=== PATIENT | male | born 1955 | race Caucasian/White ===

== ENCOUNTER 2025-10-02 11:12 | Observation (INO) ==
--- NOTE | 2025-10-02 11:15 | Emergency Department Note ---
Impression & Plan Near syncope, Parkinson disease, Hypotension, Frequent falls ED Provider Note NAME: AMISHA CALLAWAY AGE: 70 SEX: M : 1955 ARRIVES VIA: Ambulance INFORMANT: Patient, ED PROVIDER(S): Gumaro Lynn MD CHIEF COMPLAINT: Near syncope MEDICAL DECISION MAKING: Patient presents due to concern for syncope versus near syncope. IV was established and blood work was obtained patient was ordered IV fluids and a chest x-ray urinalysis. Patient does have some chronic neck pain but is paracervical no reported falls or trauma per EMS. Family reported to EMS that the patient was lowered to a seated position after standing. Patient never did hit his head or neck. Patient's blood work shows a normal white count hemoglobin 11.6 platelet count is unremarkable. Kidney function unremarkable. Mild hypomagnesemia at 1.5 blood sugar 164 but nonfasting not DKA. Low TSH but free T4 is normal. Patient did have a chest x-ray completed which was unremarkable. I did inform the patient and the patient's family bedside of the findings. Given that the patient has had persistent issues do not think unreasonable to stay in hospital for further workup. I did speak with the on-call hospital service Dr. Maya and the patient was admitted to the medicine service. Discussion w/ other healthcare providers: Dr. Maya inpatient medicine service Prior /Outside records reviewed: I reviewed part of a consultation from Dr. Miramontes from September 19. The patient was seen for near syncope Parkinson's history of cognitive impairment and history of TIA stroke. Patient reportedly had multiple episodes of near syncope in his back of his neck and head pain becomes pale reduced consciousness but never fully loses consciousness. Thought potentially secondary to autonomic instability orthostatic hypotension in the setting of Parkinson's disease. I reviewed part of a neurology visit from July 2024. Known history of Parkinson's. History of TIA under care at [facility] [place] compliant with medications and history of moderate cognitive impairment. Plan at this time is to increase his Sinemet to 1-1/2 tablets 4 times daily. Differential diagnosis: Benign positional vertigo, dehydration, hypovolemia, anemia, infection, hypoglycemia, electrolyte abnormalities, arrhythmia, tox among others were considered. Diagnostics, as interpreted by me: ECG: Normal sinus rhythm, rate of 82, normal intervals, normal axis no ST elevations. Cardiac monitoring: An order was placed for continuous cardiac monitoring. The monitor shows a rate of 85 with sinus rhythm. Patient was placed on pulse oximetry Medical decision rules: None Imaging studies: I informally interpreted the patient's chest x-ray does not show obvious pneumonia with formal report to follow. HPI: Patient presents due to concern for low blood pressure. The patient reportedly has had issues with low blood pressure over the last several weeks. Patient with reported history of dementia and Parkinson's coming from home with a history of frequent falls. Patient reportedly was lightheaded dizzy had complained of some posterior neck pain EMS was called due to concerns for "zoning out.". They noticed that his blood pressure was low into the 70s systolic. The patient states that he ate and drank this morning. Patient is unclear as to whether or not he fell but EMS reports that family stated that they lowered him to a seated position no fall or head strike. Review of the patient's medication list does show that he takes Plavix but no other blood thinning agents. Blood sugar prior to arrival was in the 140s. Patient states that he does have occasional dyspnea on exertion. No reported cough or fever. He does not smoke tobacco but does smoke marijuana most recently smoking last evening. PAST MEDICAL HISTORY: See Below PAST SURGICAL HISTORY: See Below SOCIAL HISTORY: See Below HOME MEDICATIONS: See Below ALLERGIES: See Below VITALS: See Below PHYSICAL EXAMINATION: GENERAL: NAD, non-toxic. EYE EXAM: Normal conjunctiva. PERRL, no anisocoria and EOM's grossly intact w/o pain. OROPHARYNX: Moist mucus membranes. NECK: Trachea midline, no stridor. Paraspinal discomfort without midline cervical pain. No obvious step-offs. LUNGS: Clear to auscultation. Normal chest wall mechanics. HEART: NSR, no MRG. ABDOMEN: Abdomen soft, non-tender, no masses, no rebound or guarding. BACK: No CVA TTP. SKIN: No rashes and no bruising. UPPER EXTREMITIES: Upper extremities are grossly normal. LOWER EXTREMITIES: Grossly normal, no edema. NEURO EXAM: Awake and alert, follows commands, no obvious facial asymmetry, normal speech, moves all 4 extremities. Past Med/Surg History Problem List (Updated 10/03/25 @ 14:25 by Gumaro Lynn MD) Frequent falls (Acute) Near syncope (Acute) Hypotension (Acute) Intracranial aneurysm (Acute) Parkinson disease (Acute) Fall (Acute) Heart murmur Tremor Medical History Prostate cancer Hx TIA/stroke w/o resid Multiple falls Epilepsy Depression with anxiety Chronic nonalcoholic liver disease Prediabetes Ambulatory dysfunction Moderate cognitive impairment Near syncope Intracranial aneurysm GERD (gastroesophageal reflux disease) Hypothyroidism HLD (hyperlipidemia) COPD (chronic obstructive pulmonary disease) Parkinson disease Surgical History History of carpal tunnel release of both wrists H/O thumb surgery History of cholecystectomy Family History Mother Stomach cancer Father Cancer Brother Cancer Daughter Vwijg-Opaquuyzq-Jjmac syndrome Son Coronary heart disease Daughter Thoracic aortic aneurysm Pacemaker Social History Smoking Status: Former smoker Tobacco Type: Cigarettes packs per day: 1.5; Smoking End Date: 40 years of tobacco use; Hx Alcohol Use: Yes Alcohol type: beer Alcohol type Comment: quit ~2020 Hx Substance Use: Yes Last Used Substance: Hours (ago) Last Used Substance Other:: Pt reports daily use; has medical card Preferred Language: Hong Konger Communication Ability: 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 Beliefs That Will Affect Care: None marital status: Current Living Situation: Spouse current occupational status: retired How many Children do You have: 4 Other Information That Helps Us Care for You: No Feels Safe at Home: Yes Safety Concerns: Feels Safe At This Time Assistive Devices: Cane and Walker Allergies Allergies Allergy/AdvReac Type Severity Reaction Status Date / Time lamotrigine [From Lamictal] Allergy Swelling Verified 10/02/25 13:44 of Lip/Tongue/Throat Home Meds Home Medications Medication Instructions Recorded Confirmed MEDICAL MARIJUANA 0 dose PO UD 03/15/24 10/02/25 aspirin 81 mg tablet,delayed 81 mg PO DAILY 03/15/24 10/02/25 release atorvastatin 80 mg tablet 80 mg PO QAM 03/15/24 10/02/25 blood-glucose meter 03/15/24 05/02/24 famotidine 40 mg tablet 40 mg PO QPM 03/15/24 10/02/25 fluoxetine 20 mg capsule 20 mg PO QAM 03/15/24 10/02/25 lancets 30 gauge (Easy Touch 03/15/24 05/02/24 Lancets) metformin 1,000 mg tablet 1,000 mg PO BID 03/15/24 10/02/25 pantoprazole 40 mg tablet,delayed 40 mg PO QAM 03/15/24 10/02/25 release doxepin 25 mg capsule 25 mg PO QAM 03/21/24 10/02/25 mecobalamin (vitamin B12) 1,000 1,000 mcg sublingual QAM 05/02/24 10/02/25 mcg disintegrating tablet,sublingual carbidopa 25 mg-levodopa 100 mg 2 tab PO TID 09/19/25 10/02/25 tablet doxepin 75 mg capsule 75 mg PO QPM 09/19/25 10/02/25 losartan 25 mg tablet 25 mg PO QAM 09/19/25 10/02/25 albuterol sulfate 90 mcg/actuation 0 puff inhalation QID PRN 10/02/25 10/02/25 aerosol inhaler shortness of breath or wheezing amlodipine 10 mg tablet 0 mg PO DAILY 10/02/25 10/02/25 cholecalciferol (vitamin D3) 25 25 mcg PO QAM 10/02/25 10/02/25 mcg (1,000 unit) capsule clopidogrel 75 mg tablet 75 mg PO QAM 10/02/25 10/02/25 tamsulosin 0.4 mg capsule 0.4 mg PO QPM 10/02/25 10/02/25 Previous Rx's Medication Instructions Recorded divalproex 500 mg tablet,delayed 500 mg PO BID #60 tabs 12/31/23 release levothyroxine 125 mcg capsule 125 mcg PO QAM #30 caps 12/31/23 Results & Data (ED) Vital Signs Vital Signs - 24 hr 10/02/25 14:30 10/02/25 14:33 10/02/25 14:35 Pulse Rate 83 82 Pulse Rate from SpO2 Sensor 83 82 Respiratory Rate 19 16 Blood Pressure 112/68 Blood Pressure Mean 89 Pulse Oximetry 97 96 10/02/25 14:35 10/02/25 14:36 10/02/25 14:37 Pulse Rate 81 Pulse Rate from SpO2 Sensor 81 Respiratory Rate 17 Blood Pressure 112/68 113/60 Blood Pressure Mean 89 94 Pulse Oximetry 97 10/02/25 14:38 10/02/25 14:38 10/02/25 14:38 Pulse Rate Pulse Rate from SpO2 Sensor Respiratory Rate Blood Pressure 122/66 122/66 122/66 Blood Pressure Mean 90 90 90 Pulse Oximetry 10/02/25 14:38 10/02/25 14:38 10/02/25 14:42 Pulse Rate 81 Pulse Rate from SpO2 Sensor 80 Respiratory Rate 17 Blood Pressure 122/66 122/66 Blood Pressure Mean 90 90 Pulse Oximetry 97 10/02/25 14:51 10/02/25 15:00 10/02/25 15:12 Pulse Rate 81 83 82 Pulse Rate from SpO2 Sensor 82 82 82 Respiratory Rate 17 22 15 Blood Pressure Blood Pressure Mean Pulse Oximetry 96 95 95 10/02/25 15:21 10/02/25 15:30 10/02/25 15:42 Pulse Rate 84 77 79 Pulse Rate from SpO2 Sensor 88 77 78 Respiratory Rate 15 17 15 Blood Pressure 122/66 Blood Pressure Mean 84 Pulse Oximetry 97 96 97 10/02/25 15:51 Pulse Rate 80 Pulse Rate from SpO2 Sensor 80 Respiratory Rate 17 Blood Pressure Blood Pressure Mean Pulse Oximetry 98 Home Medications Current Medication List: was personally reviewed by tx Laboratory Data Attestation: I reviewed the patient's lab results. 10/02/25 Unknown 10/03/25 05:27 Lab Results 10/02/25 Range/Units 12:24 Sodium 139 (136-145) mmol/L Potassium 4.6 (3.5-5.1) mmol/L Chloride 106 (98-107) mmol/L Carbon Dioxide 22 (21-32) mmol/L Anion Gap 11 (3-11) BUN 21 (6-23) mg/dl Creatinine 1.24 (0.6-1.4) mg/dl Est Cr Clr Drug Dosing 58.1 ml/min eGFR 61.77 BUN/Creatinine Ratio 16.9 (10-20) Glucose 164 H (70-99(Fasting)) mg/dl Calcium 9.2 (8.6-10.3) mg/dl Magnesium 1.5 L (1.7-2.4) mg/dl Total Bilirubin 0.4 (0.2-1.0) mg/dl AST 10 L (13-39) U/L ALT < 3 L (7-52) U/L Alkaline Phosphatase 34 (34-104) U/L Troponin I High Sens 3.3 (0-20) pg/ml Total Protein 6.5 (6.0-8.3) gm/dl Albumin 4.0 (3.4-5.0) gm/dl Globulin 2.5 (2.5-4.0) gm/dl Albumin/Globulin Ratio 1.6 (0.9-2) TSH 0.120 L (0.300-4.500) uIu/ml Free T4 1.13 (0.61-1.60) ng/dl Administered Medications Atorvastatin Calcium (Atorvastatin 40 Mg Tab) 80 mg PO QAM VERONIQUE Stop: 11/02/25 08:59 Last Admin: 10/03/25 08:25 Dose: 80 mg Documented By: SASKIA Carbidopa/Levodopa (Carbidopa/Levodopa 25/100mg Tab) 2 tab PO TID VERONIQUE Stop: 11/01/25 20:59 Last Admin: 10/03/25 14:15 Dose: 2 tab Documented By: Admin: 10/03/25 08:24 Dose: 2 tab Documented By: Admin: 10/02/25 21:24 Dose: 2 tab Documented By: ROSALINA Cyanocobalamin (Cyanocobalamin (B-12) 500 Mcg Tablet) 1,000 mcg PO QAM VERONIQUE Stop: 11/02/25 08:59 Last Admin: 10/03/25 08:24 Dose: 1,000 mcg Documented By: SASKIA Divalproex Sodium (Divalproex Delay Release 500 Mg Tab) 500 mg PO BID VERONIQUE Stop: 11/01/25 20:59 Last Admin: 10/03/25 08:24 Dose: 500 mg Documented By: Admin: 10/02/25 21:24 Dose: 500 mg Documented By: ROSALINA Doxepin HCl (Doxepin Hcl 25 Mg Capsule) 25 mg PO QAM VERONIQUE Stop: 11/02/25 08:59 Last Admin: 10/03/25 08:24 Dose: 25 mg Documented By: SASKIA Doxepin HCl (Doxepin Hcl 75 Mg Capsule) 75 mg PO QPM VERONIQUE Stop: 11/01/25 20:59 Last Admin: 10/02/25 21:24 Dose: 75 mg Documented By: ROSALINA Famotidine (Famotidine 40 Mg Tablet) 40 mg PO QPM VERONIQUE Stop: 11/01/25 20:59 Last Admin: 10/02/25 21:24 Dose: 40 mg Documented By: ROSALINA Fluoxetine HCl (Fluoxetine Hcl 20 Mg Cap) 20 mg PO QAM VERONIQUE Stop: 11/02/25 08:59 Last Admin: 10/03/25 08:25 Dose: 20 mg Documented By: SASKIA Insulin Aspart (Insulin Aspart Per Unit Charge) 0 units SC ACHS VERONIQUE Stop: 11/02/25 07:29 Last Admin: 10/03/25 13:11 Dose: 2 units Documented By: SASKIA Co-signed By: CA Admin: 10/03/25 08:28 Dose: 2 units Documented By: SASKIA Co-signed By: DTT Levothyroxine Sodium (Levothyroxine Sodium 112 Mcg Tablet) 112 mcg PO DAILYBB [facility] Stop: 11/02/25 06:29 Last Admin: 10/03/25 06:30 Dose: 112 mcg Documented By: ROSALINA Melatonin (Melatonin 3 Mg Tab) 3 mg PO HS [facility] Stop: 11/01/25 20:59 Last Admin: 10/02/25 21:25 Dose: 3 mg Documented By: ROSALINA Pantoprazole Sodium (Pantoprazole 40 Mg Tab) [facility] [place] Stop: 11/02/25 08:59 Last Admin: 10/03/25 08:25 Dose: 40 mg Documented By: SASKIA Vitamin D (Cholecalciferol 25 Mcg (1000 Units) Tab) 25 mcg PO QAM [facility] Stop: 11/02/25 08:59 Last Admin: 10/03/25 08:25 Dose: 25 mcg Documented By: SASKIA Discontinued Medications Sodium Chloride (Nss) 1,000 mls @ 999 mls/hr IV .[id number] [facility] Stop: 10/02/25 12:30 Last Infusion: 10/02/25 12:55 Dose: Infused Documented By: KRLibra Admin: 10/02/25 11:46 Dose: 999 mls/hr Documented By: OLMAN Sodium Chloride (Nss) 1,000 mls @ 80 mls/hr IV .[id number] [facility] Stop: 10/03/25 02:44 Last Infusion: 10/03/25 04:49 Dose: Infused Documented By: Admin: 10/02/25 14:40 Dose: 80 mls/hr Documented By: KIRAN Magnesium Sulfate/Dextrose (Magnesium Sulfate / D5w) 1 gm in 100 mls @ 50 mls/hr IV Q2H VERONIQUE Stop: 10/03/25 02:59 Last Infusion: 10/03/25 04:48 Dose: Infused Documented By: Admin: 10/03/25 01:14 Dose: 50 mls/hr Documented By: Infusion: 10/03/25 01:14 Dose: Infused Documented By: Admin: 10/02/25 23:29 Dose: 50 mls/hr Documented By: Infusion: 10/02/25 23:28 Dose: Infused Documented By: Admin: 10/02/25 21:28 Dose: 50 mls/hr Documented By: DLR Ioversol (Optiray 320 125ml) 118 ml IV ONCE ONE Stop: 10/02/25 22:47 Last Admin: 10/02/25 22:47 Dose: 118 ml Documented By: GES Imaging Data Radiologist's Impression: Chest X-Ray 10/02/25 11:21 XR chest 1V portable CLINICAL HISTORY: weakness COMPARISON STUDY: 09/19/2025 FINDINGS: Heart size and pulmonary vasculature are normal. No consolidation or pleural effusion. No pneumothorax. IMPRESSION: No acute findings. ACT 112: Negative or not required by law. Electronically signed by: Rc Stewart M.D. 10/02/2025 11:39 AM Discharge Plan Visit Data Chief Complaint: Hypotension Stated Complaint: Hypotension ED Provider: Gumaro Lynn Discharge Problem: Near syncope, Parkinson disease, Hypotension, Frequent falls Patient Disposition: Admitted As Inpatient Condition: Good Discharge Instructions Interventions: ED Discharge Assessment Last Done: 10/02/25 17:12 Discharge Problem: Parkinson disease Qualifiers: Dyskinesia presence: unspecified whether dyskinesia Fluctuating manifestations: unspecified whether manifestations fluctuate Qualified Code(s): G20.A1 - Parkinson's disease without dyskinesia, without mention of fluctuations Hypotension Qualifiers: Hypotension type: unspecified hypotension type Qualified Code(s): I95.9 - Hypotension, unspecified
--- NOTE | 2025-10-02 11:40 | XRay Report ---
XR chest 1V portable CLINICAL HISTORY: weakness COMPARISON STUDY: 09/19/2025 FINDINGS: Heart size and pulmonary vasculature are normal. No consolidation or pleural effusion. No p neumothorax. IMPRESSION: No acute findings. ACT 112: Negative or not required by law. Electronically signed by: Rc Stewart M.D. 10/02/2025 11:39 AM
[2025-10-02] MEDS: SODIUM CHLORIDE 0.9% 1,000 ML IV SCH ×2 (11:46→14:40)
[2025-10-02 11:49] LABS: Hematocrit (blood only) 35.0 % (42.0-52.0); Hemoglobin 11.6 g/dL (14.0-18.0); Immature Granulocytes # (auto) 0.03 K/uL (0.01-0.20); Immature Granulocytes % (auto) 0.4 %; Mean Corpuscular Hemoglobin 29.4 pg (25.0-34.0); Mean Corpuscular Volume 88.8 fL (80.0-100.0); Platelet Count 273 K/uL (130-400); RDW Standard Deviation 47.4 fL (36.4-46.3); Red Blood Count 3.94 M/uL (4.70-6.10); White Blood Count 7.42 K/ul (4.8-10.8)
[2025-10-02 12:56] LABS: Anion Gap 11 (3-11); Blood Urea Nitrogen 21 mg/dl (6-23); Calcium 9.2 mg/dl (8.6-10.3); Carbon Dioxide 22 mmol/L (21-32); Chloride 106 mmol/L (98-107); Creatinine Clr Calc Pharmacy 58.1 ml/min; Glucose 164 mg/dl (70-99(Fasting)); Potassium 4.6 mmol/L (3.5-5.1); Sodium 139 mmol/L (136-145)
[2025-10-02 13:09] LABS: Alanine Aminotransferase < 3 U/L (7-52); Albumin Globulin Ratio 1.6 (0.9-2); Albumin Level 4.0 gm/dl (3.4-5.0); Alkaline Phosphatase 34 U/L (34-104); Bilirubin,Total 0.4 mg/dl (0.2-1.0); Globulin 2.5 gm/dl (2.5-4.0); Total Protein 6.5 gm/dl (6.0-8.3)
[2025-10-02 13:10] LABS: Thyroid Stimulating Hormone 0.120 uIu/ml (0.300-4.500)
[2025-10-02 13:47] LABS: T4 Free Thyroxine 1.13 ng/dl (0.61-1.60)
--- NOTE | 2025-10-02 14:12 | History & Physical Report ---
Date of Service October 02, 2025 Assessment & Plan (1) Near syncope: (2) Multiple falls: (3) Hypotension: (4) Parkinson disease: (5) COPD (chronic obstructive pulmonary disease): (6) HLD (hyperlipidemia): (7) Hypothyroidism: (8) GERD (gastroesophageal reflux disease): (9) Intracranial aneurysm: (10) Moderate cognitive impairment: (11) Prediabetes: (12) Depression with anxiety: (13) Epilepsy: Plan 70yo male with Parkinson's disease, intracranial aneurysms, cognitive im pairment/dementia, pre-diabetes, seizure disorder, hyperlipidemia, hypothyroidism, COPD, GERD, and prior tobacco use (using medical THC however) presents from home via EMS after an episode of near-syncope (vs syncope) in his bathroom. Patient was in his usual health this morning upon awakening. About 930am he went to the bathroom and had a bowel movement. He reports that he was NOT straining at stool. Upon getting up from the toilet he immediately felt dizzy/lightheaded/weak then subsequently fell to the ground. His family found him straddled between the bathroom & hallway. He was pale. He was shaky per his . 911 was called and EMS was summoned. Upon EMS arrival to the house his BP was 70/44. #near-syncope / syncope - -although his orthostatic BPs in the ER are negative, he had documented/confirmed hypotension during today's event, and his BP was low on another event a few weeks ago -he has prodromal dizziness/lightheadedness prior to his near-syncope (vs full syncope) -after the events he has mild nausea, has severe pallor, and is modestly confused - describes what sounds like myoclonus which can be a feature of syncopal events -he also mentions feeling dizzy/lightheaded briefly with standing multiple times each day -I suspect he is having orthostatic hypotension -dysautonomia/orthostatic hypotension can be a prominent feature of some people with Parkinson's -other possibilities include cordell-arrhythmia (AV block, sinus pauses, etc) vs tachy-arrhythmia (VT, SVT, a.fib, etc) vs atypical seizures vs TIA events vs other -plan: -check orthostatic BPs Qshift -HOLD amlodipine, HOLD flomax, HOLD losartan -MRI brain - r/o CVA -CTA head on 09/19/25 showed "Very subtle mild ectasia of the left ICA in the petrous portion measuring 6 mm. 3 mm aneurysmal dilatation M1 segment of right MCA. " -will repeat CTA head to ensure no rupture of one of these vessels -echo -telemetry -s/p IV fluid bolus in ER; will give additional 1 liter of NS overnight -if indeed he is orthostatic consider - -compression stockings -midodrine or florinef -if telemetry is normal while here could consider outpatient Holter or event monitor -events do not sound like atypical seizures - defer on EEG for now #posterior neck pain during episodes - -atypical headache due to hypoperfusion from severe hypotension during episodes? -CTA neck negative on 09/19/25 -CT cervical spine on 09/19/25 without fracture; has DDD/DJD but mild-moderate only #HTN - -patient is on amlodipine, losartan, and flomax -in light of hypotension at home today - and given the concern for orthostasis - hold all 3 meds upon admission -check orthostatics Qshift #h/o seizures - -on depakote 500mg BID -check depakote level in am tomorrow #hypomagnesemia - -replace with IV mag sulfate 3gm x 1 -repeat level am -presenting level today 1.5 #hypothyroidism - -TSH on 09/19/25 and today both suppressed -will lower levothyroxine from 125mcg daily to 112mcg daily -repeat TSH as outpatient in 6 weeks #intracranial aneurysms - -repeat CTA head today - r/o rupture of aneurysm in light of headache, etc. #parkinson's disease - -cont carbidopa-levodopa 2 tabs TID -PT/OT while here #hyperlipidemia - -cont statin #pre-DM - -check a1c in am -hold metformin -BSGs ac/hs -novolog SSI -DM diet #COPD - -no exacerbation at this time #GERD - -cont pepcid -cont PPI #DVT proph - -if patient stays beyond tomorrow add chemical DVT Proph pt's family extensively updated at bedside during the admission process pt is on plavix - due to prior TIA? place on observation status History of Present Illness Chief Complaint: near-syncope Primary Care Provider: NO PCP 70yo male with Parkinson's disease, intracranial aneurysms, cognitive impairment/dementia, pre-diabetes, seizure disorder, hyperlipidemia, hypothyroidism, COPD, GERD, and prior tobacco use (using medical THC however) presents from home via EMS after an episode of near-syncope (vs syncope) in his bathroom. Patient was in his usual health this morning upon awakening. About 930am he went to the bathroom and had a bowel movement. He reports that he was NOT straining at stool. Upon getting up from the toilet he immediately felt dizzy/lightheaded/weak then subsequently fell to the ground. His family found him straddled between the bathroom & hallway. He was pale. He was shaky per his . 911 was called and EMS was summoned. Upon EMS arrival to the house his BP was 70/44. Patient himself does think he passed out completely. reports during today's episode and prior episodes he is "out of it" and confused. Although he had shakes during the spell today this looks very different than his prior seizures years ago. Patient denies hitting his head. Patient reports he has at least 3-4 brief episodes of feeling dizzy/lightheaded upon standing on daily basis. The lightheaded feeling passes within a minute or two. He does have occasional heart racing/palpitations with these spells. Over the last 3-4 weeks he has had 4-5 more severe spells that were similar to today's episode. He was evaluated in our ER on 09/19/25 for one of these spells, underwent CTA head/neck and other work-up, then released to home. On another episode he was walking down the steps into his daughter's basement and when he got to the bottom of the steps he felt dizzy/lightheaded. BP during that episode was 60/34. In addition to the above he reports that he has pain at the base of his posterior neck when he has these spells. The pain lasts for a while following the episodes. also reports that his "breathing seems rapid and hard" during near-syncopal events. Denies any vertigo. He denies any episode that comes on without warning. Allergies Allergy/AdvReac Type Severity Reaction Status Date / Time lamotrigine [From Lamictal] Allergy Swelling Verified 10/02/25 13:44 of Lip/Tongue/Throat Home Medications Medication Instructions Recorded Confirmed Type divalproex 500 mg tablet,delayed 500 mg PO BID #60 tabs 12/31/23 10/02/25 Rx release levothyroxine 125 mcg capsule 125 mcg PO QAM #30 caps 12/31/23 10/02/25 Rx MEDICAL MARIJUANA 0 dose PO UD 03/15/24 10/02/25 History aspirin 81 mg tablet,delayed 81 mg PO DAILY 03/15/24 10/02/25 History release atorvastatin 80 mg tablet 80 mg PO QAM 03/15/24 10/02/25 History blood-glucose meter 03/15/24 05/02/24 History famotidine 40 mg tablet 40 mg PO QPM 03/15/24 10/02/25 History fluoxetine 20 mg capsule 20 mg PO QAM 03/15/24 10/02/25 History lancets 30 gauge (Easy Touch 03/15/24 05/02/24 History Lancets) metformin 1,000 mg tablet 1,000 mg PO BID 03/15/24 10/02/25 History pantoprazole 40 mg tablet,delayed 40 mg PO QAM 03/15/24 10/02/25 History release doxepin 25 mg capsule 25 mg PO QAM 03/21/24 10/02/25 History mecobalamin (vitamin B12) 1,000 1,000 mcg sublingual QAM 05/02/24 10/02/25 History mcg disintegrating tablet,sublingual carbidopa 25 mg-levodopa 100 mg 2 tab PO TID 09/19/25 10/02/25 History tablet doxepin 75 mg capsule 75 mg PO QPM 09/19/25 10/02/25 History losartan 25 mg tablet 25 mg PO QAM 09/19/25 10/02/25 History albuterol sulfate 90 mcg/actuation 0 puff inhalation QID PRN 10/02/25 10/02/25 History aerosol inhaler shortness of breath or wheezing amlodipine 10 mg tablet 0 mg PO DAILY 10/02/25 10/02/25 History cholecalciferol (vitamin D3) 25 25 mcg PO QAM 10/02/25 10/02/25 History mcg (1,000 unit) capsule clopidogrel 75 mg tablet 75 mg PO QAM 10/02/25 10/02/25 History tamsulosin 0.4 mg capsule 0.4 mg PO QPM 10/02/25 10/02/25 History Past Med/Surg History Problem List (Updated 10/03/25 @ 06:02 by Shree Maya MD) Hypotension Intracranial aneurysm (Acute) Parkinson disease (Acute) Fall (Acute) Heart murmur Tremor Medical History (Updated 10/03/25 @ 06:02 by Shree Maya MD) Prostate cancer Hx TIA/stroke w/o resid Multiple falls Epilepsy Depression with anxiety Chronic nonalcoholic liver disease Prediabetes Ambulatory dysfunction Moderate cognitive impairment Near syncope Intracranial aneurysm GERD (gastroesophageal reflux disease) Hypothyroidism HLD (hyperlipidemia) COPD (chronic obstructive pulmonary disease) Parkinson disease Surgical History (Updated 10/02/25 @ 21:32 by Shree Maya MD) History of carpal tunnel release of both wrists H/O thumb surgery History of cholecystectomy Family History (Updated 10/02/25 @ 21:34 by Shree Maya MD) Mother Stomach cancer Father Cancer Brother Cancer Daughter Ctjfk-Zzhrvqzje-Johim syndrome Son Coronary heart disease Daughter Thoracic aortic aneurysm Pacemaker Social History (Updated 10/02/25 @ 21:35 by Shree Maya MD) Smoking Status: Former smoker Tobacco Type: Cigarettes packs per day: 1.5; Smoking End Date: 40 years of tobacco use; Hx Alcohol Use: Yes Alcohol type: beer Alcohol type Comment: quit ~2020 Hx Substance Use: Yes Last Used Substance: Hours (ago) Last Used Substance Other:: Pt reports daily use; has medical card Preferred Language: Swedish Communication Ability: Effective Writer Technical Publications Required: No Beliefs That Will Affect Care: None marital status: Current Living Situation: Spouse current occupational status: retired How many Children do You have: 4 Other Information That Helps Us Care for You: No Feels Safe at Home: Yes Safety Concerns: Feels Safe At This Time Assistive Devices: Cane, Glasses and Walker Review of Systems Review of Systems: gen - no fevers or chills, eating fair, no recent weight change eyes - no ocular changes in the days leading up to admission HENT - no URI symptoms, no dysphagia CV - no chest pain at any point prior to, during, or after his near-syncopal events; some palpitations/tachycardia feeling associated with some of his episodes pulm - no dyspnea, no cough, no congestion GI - some nausea with episodes, no vomiting; no abd pain; reports chronic diarrhea, no constipation; no blood in stol - no hematuria, no dysuria musculo - pain in the base of the neck during episodes, but doesn't really have it at other times; denies pain in arms/legs/back neuro - no frontal or facial headache; no vertigo; no focal motor weakness; no paresthesias endo - pre-DM only skin - no rash psych - reports memory difficulty Physical Exam Physical Exam: gen - NAD, lying in bed comfortably, able to answer questions; awake/alert eyes - PERRL, EOMI, no nystagmus HENT - MM dry, right TM not seen due to cerumen, left TM clear; nose clear; no evidence of facial trauma; no facial droop neck - no bruits, no JVD, no goiter heart - RRR, s1 s2, no murmur lungs - CTA b/l, no rales or wheeze abd - soft NT BS+; patient is distended to palpation; no HSM ext - pulses b/l feet 2+, trace edema b/l feet/ankles neuro - strength 5/5 x 4 exts; DTRs 2+ b/l upper and lower extremities; no facial droop; CN 3-12 intact; sensation intact to light touch x 4 exts; finger/nose/finger maneuver w/o ataxia; mild tremor of arms psych - awake, alert, fair historian skin - no rash, no evidence of any trauma musculo - no signs of any trauma, gross deformity, or injury any limb Results & Data Results & Data Vital Signs (Past 12 Hours) Vital Signs Temp Pulse Resp BP Pulse Ox O2 Del Method 10/02/25 13:30 106/64 10/02/25 13:15 82 17 123/65 96 Room Air 10/02/25 13:00 81 14 118/88 96 Room Air 10/02/25 12:45 81 16 117/63 96 Room Air 10/02/25 12:30 82 18 128/64 97 Room Air 10/02/25 12:15 83 16 109/61 96 Room Air 10/02/25 12:00 82 16 116/62 95 Room Air 10/02/25 11:45 82 16 112/63 95 Room Air 10/02/25 11:42 84 10/02/25 11:35 36.6 C 82 18 127/65 94 Room Air Laboratory Results Laboratory Results - last 24 hr 10/02/25 10/02/25 10/02/25 12:24 18:20 Unknown WBC 7.42 RBC 3.94 L Hgb 11.6 L Hct 35.0 L MCV 88.8 MCH 29.4 MCHC 33.1 RDW Std Deviation 47.4 H RDW Coeff of Teresa 14.6 H Plt Count 273 MPV 10.7 Immature Gran % (Auto) 0.4 Neut % (Auto) 49.6 Lymph % (Auto) 34.0 [place] % (Auto) 12.4 Eos % (Auto) 3.2 Baso % (Auto) 0.4 Neut # (Auto) 3.68 Lymph # (Auto) 2.52 [place] # (Auto) 0.92 H Eos # (Auto) 0.24 Baso # (Auto) 0.03 Immature Gran # (Auto) 0.03 Sodium 139 Cancelled Potassium 4.6 Cancelled Chloride 106 Cancelled Carbon Dioxide 22 Cancelled Anion Gap 11 Cancelled BUN 21 Cancelled Creatinine 1.24 Cancelled Est Cr Clr Drug Dosing 58.1 Cancelled eGFR 61.77 Cancelled BUN/Creatinine Ratio 16.9 Cancelled Glucose 164 H Cancelled Calcium 9.2 Cancelled Magnesium 1.5 L Total Bilirubin 0.4 Cancelled AST 10 L Cancelled ALT < 3 L Cancelled Alkaline Phosphatase 34 Cancelled Troponin I High Sens 3.3 Total Protein 6.5 Cancelled Albumin 4.0 Cancelled Globulin 2.5 Cancelled Albumin/Globulin Ratio 1.6 Cancelled TSH 0.120 L Cancelled Free T4 1.13 Urine Color Yellow Urine Appearance Clear Urine pH 6.0 Ur Specific [place] 1.009 Urine Protein Negative Urine Glucose (UA) Negative Urine Ketones Negative Urine Blood Negative Urine Nitrite Negative Urine Bilirubin Negative Urine Urobilinogen Negative Ur Leukocyte Esterase Negative Urine Comment Diagnostic Findings Chest X-Ray 10/02/25 11:21 XR chest 1V portable CLINICAL HISTORY: weakness COMPARISON STUDY: 09/19/2025 FINDINGS: Heart size and pulmonary vasculature are normal. No consolidation or pleural effusion. No pneumothorax. IMPRESSION: No acute findings. ACT 112: Negative or not required by law. Electronically signed by: Rc Stewart M.D. 10/02/2025 11:39 AM KUB X-Ray 10/02/25 17:08 Clinical history: Abdominal distention 3 views of the abdomen were obtained Findings: There is mild constipation. There is mild dilatation of a small bowel loop in the left lower quadrant. No renal or ureteral calculi are seen. No foreign body is evident. There is lumbar scoliosis and degenerative disc disease. Surgical clips are seen consistent with prior cholecystectomy. Impression: Mildly dilated small bowel loop in the left lower quadrant. This could be due to either ileus or a partial small bowel obstruction ACT 112: Positive. There are findings on this exam that require communication between the performing entity and the patient following Patient Test Result Information Act ([place] ACT 112) guidelines. Electronically signed by Quinten Rosen 10-02-2025 6:54 PM Orbit X-Ray 10/02/25 17:08 EXAMINATION: X-ray orbits for MRI CLINICAL HISTORY: Rule out foreign body pre-MRI history of metal removed from eyes decades ago PRIORS: None TECHNIQUE: Looking up and looking down views as well as lateral view. FINDINGS: No middle or radiopaque foreign body in the orbits. No displaced fracture. PRESSION: No metal foreign body in the orbits. Electronically signed by Ramya Upton 10-02-2025 6:49 PM ECG Additional Comments: EKG- my reading: NSR, no ST Changes Code Status & VTE Plan Code Status full code PG Care Time/CCT Total # of Minutes Spent Total Time Spent with Patient: Total time spent is greater than 50% in coordination of care (as documented) at patient's floor/unit and/or counseling patient: Coding Level of Care Code 01162 INT INP/OBS CARE 3/75MIN Diagnoses Near syncope R55 Multiple falls R29.6 Hypotension I95.9 Parkinson disease G20.A1 COPD (chronic obstructive pulmonary disease) J44.9 HLD (hyperlipidemia) E78.5 Hypothyroidism E03.9 GERD (gastroesophageal reflux disease) K21.9 Intracranial aneurysm I67.1 Moderate cognitive impairment R41.89 Prediabetes R73.03 Depression with anxiety F41.8 Epilepsy G40.909
[2025-10-02 16:22] LABS: Magnesium 1.5 mg/dl (1.7-2.4)
[2025-10-02] MEDS ORDERED: ONDANSETRON INJ 2 MG/ML 2 ML VIAL IV PRN (17:54)
[2025-10-02] MEDS ORDERED: ACETAMINOPHEN 325 MG TAB PO PRN (17:54)
[2025-10-02] MEDS ORDERED: ALBUTEROL HFA 8 GM INHALER INH PRN (17:54)
[2025-10-02 18:48] LABS: Appearance Urine Clear (Clear); Glucose Urine UA Negative (Negative)
--- NOTE | 2025-10-02 18:49 | XRay Report ---
EXAMINATION: X-ray orbits for MRI CLINICAL HISTORY: Rule out foreign body pre-MRI history of metal removed from eyes decades ago PRIORS: None TECHNIQUE: Looking up and looking down views as well as lateral view. FINDINGS: No middle or radiopaque foreign body in the orbits. No displaced fracture. PRESSION: No metal foreign body in the orbits. Electronically signed by Ramya Upton 10-02-2025 6:49 PM
--- NOTE | 2025-10-02 18:54 | XRay Report ---
Clinical history: Abdominal distention 3 views of the abdomen were obtained Findings: There is mild constipation. There is mild dilatation of a small bowel loop in the left lower quadrant. No renal or ureteral calculi are seen. No foreign body is evident. There is lumbar scoliosis and degenerative disc disease. Surgical clips are seen consistent with prior cholecystectomy. Impression: Mildly dilated small bowel loop in the left lower quadrant. This could be due to either ileus or a partial small bowel obstruction ACT 112: Positive. There are findings on this exam that require communication between the performing entity and the patient following Patient Test Result Information Act ([place] ACT 112) guidelines. Electronically signed by Quinten Rosen 10-02-2025 6:54 PM
[2025-10-02] MEDS: DOXEPIN HCL 75 MG CAPSULE PO SCH (21:24)
[2025-10-02] MEDS: CARBIDOPA/LEVODOPA 25/100MG TAB PO SCH (21:24)
[2025-10-02] MEDS: FAMOTIDINE 40 MG TABLET PO SCH (21:24)
[2025-10-02] MEDS: DIVALPROEX DELAY RELEASE 500 MG TAB PO SCH (21:24)
[2025-10-02] MEDS: MELATONIN 3 MG TAB PO SCH (21:25)
[2025-10-02] MEDS: MAGNESIUM SULFATE / D5W 1 GM/100 ML BAG IV SCH (21:28)
--- NOTE | 2025-10-02 22:25 | Magnetic Resonance Report ---
Exam(s): MRI HEAD Without Contrast EXAM: MR Head Without Intravenous Contrast CLINICAL HISTORY: Reason for exam: h/o prior stroke, parkinson's, syncope. OTHER: Other Notes: severe neck pain possible parkinsons pt states passed out, brought by ambulance TECHNIQUE: Magnetic resonance images of the head/brain without intravenous contrast in multiple planes. COMPARISON: Prior head CT from September 19, 2025. FINDINGS: Brain: Mild nonspecific white matter changes. No mass. No hemorrhage. No acute infarct. The flow voids at the base the brain are intact. Ventricles: Unremarkable. No ventriculomegaly. Bones/joints: Unremarkable. No acute fracture. Sinuses: Unremarkable as visualized. No acute sinusitis. Mastoid air cells: Unremarkable as visualized. No mastoid effusion. Orbits: Bilateral lens replacements. Remote left lamina papyracea fracture deformity IMPRESSION: No evidence of acute intracranial pathology. Electronically signed by: Chacha Mercado MD 10/02/25 22:24 PM
[2025-10-02] MEDS: OPTIRAY 320 125ml IV ONE (22:47)
--- NOTE | 2025-10-03 00:47 | CT Scan Report ---
Exam(s): CTA HEAD With Contrast IV Amt: 118 cc opti 320 EXAM: CT Angiography Head With Intravenous Contrast CLINICAL HISTORY: Reason for exam: aneurysms, headache, syncope. TECHNIQUE: Axial computed tomographic angiography images of the head with intravenous contrast. Automated exposure control was utilized for the study. A dose lowering technique was utilized adhering to the principles of ALARA. MIP reconstructed images were created and reviewed. CONTRAST: Patient received 118 cc opti 320 of IV contrast COMPARISON: Prior CT angiogram of the head from September 19, 2025. FINDINGS: The dural venous sinuses are patent. Right internal carotid artery: No acute findings. Intracranial segment is patent with no significant stenosis. No aneurysm. Right anterior cerebral artery: Unremarkable. No occlusion or significant stenosis. No aneurysm. Right middle cerebral artery: Prominent infundibulum mild proximal right M2 segment. No occlusion or significant stenosis. No aneurysm. Right posterior cerebral artery: Unremarkable. No occlusion or significant stenosis. No aneurysm. Right vertebral artery: Unremarkable as visualized. Left internal carotid artery: No acute findings. Intracranial segment is patent with no significant stenosis. No aneurysm. Left anterior cerebral artery: Unremarkable. No occlusion or significant stenosis. No aneurysm. Left middle cerebral artery: Unremarkable. No occlusion or significant stenosis. No aneurysm. Left posterior cerebral artery: Unremarkable. No occlusion or significant stenosis. No aneurysm. Left vertebral artery: Unremarkable as visualized. Basilar artery: Unremarkable. No occlusion or significant stenosis. No aneurysm. IMPRESSION: No evidence of acute cerebrovascular pathology. Electronically signed by: Chacha Mercado MD 10/03/25 00:46 AM
[2025-10-03] MEDS ORDERED: LEVOTHYROXINE SODIUM 125 MCG TABLET PO SCH (06:30)
[2025-10-03] MEDS: LEVOTHYROXINE SODIUM 112 MCG TABLET PO SCH (06:30)
[2025-10-03 06:49] LABS: Anion Gap 8.0 (3-11); Blood Urea Nitrogen 16.0 mg/dl (6-23); Calcium 8.9 mg/dl (8.6-10.3); Carbon Dioxide 27.0 mmol/L (21-32); Chloride 106.0 mmol/L (98-107); Creatinine Clr Calc Pharmacy 69.7 ml/min; Glucose 104.0 mg/dl (70-99(Fasting)); Magnesium 2.2 mg/dl (1.7-2.4); Potassium 4.5 mmol/L (3.5-5.1); Sodium 141.0 mmol/L (136-145)
[2025-10-03 07:13] LABS: Hemoglobin A1C 5.9 % (4.5-5.6)
[2025-10-03] MEDS: DOXEPIN HCL 25 MG CAPSULE PO SCH (08:24)
[2025-10-03] MEDS: CYANOCOBALAMIN (B-12) 500 MCG TABLET PO SCH (08:24)
[2025-10-03] MEDS: ATORVASTATIN 40 MG TAB PO SCH (08:25)
[2025-10-03] MEDS: CHOLECALCIFEROL 25 MCG (1000 UNITS) TAB PO SCH (08:25)
[2025-10-03] MEDS: INSULIN ASPART PER UNIT CHARGE SC SCH (08:28)
--- NOTE | 2025-10-03 19:19 | Magnetic Resonance Report ---
EXAM: MR cervical spine wo con CLINICAL HISTORY: Neck pain TECHNIQUE: Multiplanar, multiecho MRI sequences of the cervical spine without contrast were obtained and submitted for diagnostic interpretation. COMPARISON: 09/19/2025 CT reviewed. FINDINGS: Vertebral Alignment: Physiological cervical lordosis is preserved. Subtle degenerative retrolisthesis is noted at the C3?C4 and C4?C5 levels. Vertebral Bodies and Intervertebral Discs: The scanned intervertebral discs demonstrate variable degrees of degeneration, denoted by low T2 signal intensity with relative height reduction. Modic type I and II endplate marrow changes are seen. 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 Posterior Fossa and Skull Base: Cerebellar degenerative involutional changes are noted, expressed by prominence of the cerebellar and vermian folia. Downward herniation of the suprasellar cistern through the diaphragma sellae compresses the pituitary gland against the sellar floor, consistent with primary empty sella. [id number] Analysis: C2?C3: No focal disc pathology, spinal canal stenosis, or neural foraminal stenosis is present. C3?C4: A 1.6 mm annular bulge and a 3.4 mm central herniation/osteophytic complex indent the anterior subarachnoid space and compromise the subarticular recesses, more on the right. The herniation abuts the ventral surface of the spinal cord. Moderate spinal canal stenosis and severe right and mild left neural foraminal stenosis are noted, with impingement of the emerging nerve roots. Degenerative retrolisthesis with arthropathic uncovertebral and zygapophyseal joints augments these effects. An underlying annular fissure is seen. C4?C5: A 2.1 mm annular bulge/osteophytic complex indents the anterior subarachnoid space, causing mild bilateral neural foraminal stenosis with impingement of the emerging nerve roots. Degenerative retrolisthesis and arthropathic uncovertebral and zygapophyseal joints augment these effects. An underlying annular fissure is seen. C5?C6: A 1.6 mm annular bulge indents the anterior subarachnoid space, causing mild left neural foraminal stenosis and impingement of the left C6 nerve root. No central canal stenosis is present. Arthropathic left uncovertebral and zygapophyseal joints augment these effects. C6?C7: No focal disc pathology, spinal canal stenosis, or neural foraminal stenosis is present. C7?T1: No focal disc pathology, spinal canal stenosis, or neural foraminal stenosis is present. Spinal Cord and Nerve Roots: The spinal cord demonstrates normal signal and caliber. There is no evidence of cord compression or intradural abnormality. Soft Tissues: The paraspinal soft tissues are normal, with no abnormal signal intensity or mass lesions. IMPRESSION: 1. 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 2. Spondylodegenerative cervical disc disease. 3. Modic I and II marrow changes. 4. C3?C4 disc herniation (3.4 mm) with moderate spinal canal and right neural foraminal stenosis, abutting the cervical spinal cord. 5. C4?C5 annular bulge/osteophytic complex (2.1 mm) causing mild bilateral neural foraminal stenosis. 6. C5?C6 annular bulge (1.6 mm) with mild left neural foraminal stenosis and C6 nerve root impingement. 7. Primary empty sella. 8. Cerebellar degenerative involutional changes. 9. The reported findings explain the current clinical status. Electronically signed by Sky Blair 10-03-2025 7:18 PM
--- NOTE | 2025-10-03 22:54 | Hospitalist Progress Note ---
Date of Service October 03, 2025 Assessment & Plan (1) Near syncope: (2) Multiple falls: (3) Hypotension: (4) Parkinson disease: (5) COPD (chronic obstructive pulmonary disease): (6) HLD (hyperlipidemia): (7) Hypothyroidism: (8) GERD (gastroesophageal reflux disease): (9) Intracranial aneurysm: (10) Moderate cognitive impairment: (11) Prediabetes: (12) Depression with anxiety: (13) Epilepsy: Plan 70yo male with Parkinson's disease, intracranial aneurysms, cognitive im pairment/dementia, pre-diabetes, seizure disorder, hyperlipidemia, hypothyroidism, COPD, GERD, and prior tobacco use (using medical THC however) presents from home via EMS after an episode of near-syncope (vs syncope) in his bathroom. Patient was in his usual health this morning upon awakening. About 930am he went to the bathroom and had a bowel movement. He reports that he was NOT straining at stool. Upon getting up from the toilet he immediately felt dizzy/lightheaded/weak then subsequently fell to the ground. His family found him straddled between the bathroom & hallway. He was pale. He was shaky per his . 911 was called and EMS was summoned. Upon EMS arrival to the house his BP was 70/44. #near-syncope / syncope - -although his orthostatic BPs in the ER are negative, he had documented/confirmed hypotension during today's event, and his BP was low on another event a few weeks ago -he has prodromal dizziness/lightheadedness prior to his near-syncope (vs full syncope) -after the events he has mild nausea, has severe pallor, and is modestly confused - describes what sounds like myoclonus which can be a feature of syncopal events -he also mentions feeling dizzy/lightheaded briefly with standing multiple times each day -I suspect he is having orthostatic hypotension -dysautonomia/orthostatic hypotension can be a prominent feature of some people with Parkinson's -other possibilities include cordell-arrhythmia (AV block, sinus pauses, etc) vs tachy-arrhythmia (VT, SVT, a.fib, etc) vs atypical seizures vs TIA events vs other Likely due to autonomic dysfunction. will hold blood pressure medications. WIll monitor overnight, repeat BP did not show orthostasis. Hoping this continues, If not will consider adding midodrine. Also discussed cutting back the carbilevodopa but family preffered to continue this medication. -plan: -check orthostatic BPs Qshift -HOLD amlodipine, HOLD flomax, HOLD losartan -MRI brain - r/o CVA -CTA head on 09/19/25 showed "Very subtle mild ectasia of the left ICA in the petrous portion measuring 6 mm. 3 mm aneurysmal dilatation M1 segment of right MCA. " -will repeat CTA head to ensure no rupture of one of these vessels -echo -telemetry -s/p IV fluid bolus in ER; will give additional 1 liter of NS overnight -if indeed he is orthostatic consider - -compression stockings -midodrine or florinef -if telemetry is normal while here could consider outpatient Holter or event monitor -events do not sound like atypical seizures - defer on EEG for now #posterior neck pain during episodes - -atypical headache due to hypoperfusion from severe hypotension during episodes? -CTA neck negative on 09/19/25 -CT cervical spine on 09/19/25 without fracture; has DDD/DJD but mild-moderate only #HTN - -patient is on amlodipine, losartan, and flomax -in light of hypotension at home today - and given the concern for orthostasis - hold all 3 meds upon admission -check orthostatics Qshift #h/o seizures - -on depakote 500mg BID -check depakote level in am tomorrow #hypomagnesemia - -replace with IV mag sulfate 3gm x 1 -repeat level am -presenting level today 1.5 #hypothyroidism - -TSH on 09/19/25 and today both suppressed -will lower levothyroxine from 125mcg daily to 112mcg daily -repeat TSH as outpatient in 6 weeks #intracranial aneurysms - -repeat CTA head today - r/o rupture of aneurysm in light of headache, etc. #parkinson's disease - -cont carbidopa-levodopa 2 tabs TID -PT/OT while here #hyperlipidemia - -cont statin #pre-DM - -check a1c in am -hold metformin -BSGs ac/hs -novolog SSI -DM diet #COPD - -no exacerbation at this time #GERD - -cont pepcid -cont PPI #DVT proph - -if patient stays beyond tomorrow add chemical DVT Proph pt's family extensively updated at bedside during the admission process pt is on plavix - due to prior TIA? place on observation status Admission and Anticipated Discharge Date Admission Date: October 02, 2025 Subjective Patient reports feeling well. He has no new complaints. Physical Exam Constitutional: WD/WN, vitals as above Neck: trachea midline, no thyromegaly Respiratory: normal respiratory effort, lungs clear to auscultation Cardiovascular: RRR, no murmur, no edema Gastrointestinal (Abdomen): normal bowel sounds, soft, nontender, no hepatosplenomegaly Results & Data Results & Data Vital Signs (Past 12 Hours) Vital Signs Temp Pulse Pulse Resp BP BP Pulse Ox 10/03/25 19:44 36.7 C 83 18 134/73 94 10/03/25 15:50 36.7 C 85 19 129/74 94 10/03/25 15:50 79 10/03/25 12:07 36.6 C 76 19 134/78 95 O2 Del Method 10/03/25 19:44 Room Air 10/03/25 15:50 Room Air 10/03/25 15:50 10/03/25 12:07 Room Air PG Care Time/CCT Total # of Minutes Spent Total Time Spent with Patient: Total time spent is greater than 50% in coordination of care (as documented) at patient's floor/unit and/or counseling patient: Coding Level of Care Code 02629 SUB INP/OBS CARE 3/50MIN Diagnoses Near syncope R55 Multiple falls R29.6 Hypotension I95.9 Hypotension type: unspecified hypotension type Parkinson disease G20.A1 COPD (chronic obstructive pulmonary disease) J44.9 HLD (hyperlipidemia) E78.5 Hypothyroidism E03.9 GERD (gastroesophageal reflux disease) K21.9 Intracranial aneurysm I67.1 Moderate cognitive impairment R41.89 Prediabetes R73.03 Depression with anxiety F41.8 Epilepsy G40.909 (3) Hypotension Hypotension type: unspecified hypotension type Qualified Code(s): I95.9 - Hypotension, unspecified
[2025-10-04 06:01] LABS: Hematocrit (blood only) 33.3 % (42.0-52.0); Hemoglobin 10.9 g/dL (14.0-18.0); Mean Corpuscular Hemoglobin 28.9 pg (25.0-34.0); Mean Corpuscular Volume 88.3 fL (80.0-100.0); Platelet Count 246 K/uL (130-400); RDW Standard Deviation 46.9 fL (36.4-46.3); Red Blood Count 3.77 M/uL (4.70-6.10); White Blood Count 6.89 K/ul (4.8-10.8)
[2025-10-04 06:16] LABS: Anion Gap 7.0 (3-11); Blood Urea Nitrogen 22.0 mg/dl (6-23); Calcium 8.7 mg/dl (8.6-10.3); Carbon Dioxide 27.0 mmol/L (21-32); Chloride 106.0 mmol/L (98-107); Creatinine Clr Calc Pharmacy 60.1 ml/min; Glucose 95.0 mg/dl (70-99(Fasting)); Potassium 4.5 mmol/L (3.5-5.1); Sodium 140.0 mmol/L (136-145)
[2025-10-04 07:48] VITALS: RESP 19; TEMP 97.5; O2SAT 92
--- NOTE | 2025-10-04 10:22 | Discharge Summary ---
Discharge Summary Date of Service October 04, 2025 Principal Dx & Hospital Course #1 = Principal Diagnosis (1) Near syncope: (2) Multiple falls: (3) Hypotension: (4) Parkinson disease: (5) COPD (chronic obstructive pulmonary disease): (6) HLD (hyperlipidemia): (7) Hypothyroidism: (8) GERD (gastroesophageal reflux disease): (9) Intracranial aneurysm: (10) Moderate cognitive impairment: (11) Prediabetes: (12) Depression with anxiety: (13) Epilepsy: Plan 70yo male with Parkinson's disease, intracranial aneurysms, cognitive impairment/dementia, pre-diabetes, seizure disorder, hyperlipidemia, hypothyroidism, COPD, GERD, and prior tobacco use (using medical THC however) presents from home via EMS after an episode of near-syncope (vs syncope) in his bathroom. Patient was in his usual health this morning upon awakening. About 930am he went to the bathroom and had a bowel movement. He reports that he was NOT straining at stool. Upon getting up from the toilet he immediately felt dizzy/lightheaded/weak then subsequently fell to the ground. His family found him straddled between the bathroom & hallway. He was pale. He was shaky per his . 911 was called and EMS was summoned. Upon EMS arrival to the house his BP was 70/44. #near-syncope / syncope - -although his orthostatic BPs in the ER are negative, he had documented/confirmed hypotension during today's event, and his BP was low on another event a few weeks ago -he has prodromal dizziness/lightheadedness prior to his near-syncope (vs full syncope) -after the events he has mild nausea, has severe pallor, and is modestly confused - describes what sounds like myoclonus which can be a feature of syncopal events -he also mentions feeling dizzy/lightheaded briefly with standing multiple times each day -I suspect he is having orthostatic hypotension -dysautonomia/orthostatic hypotension can be a prominent feature of some people with Parkinson's -other possibilities include cordell-arrhythmia (AV block, sinus pauses, etc) vs tachy-arrhythmia (VT, SVT, a.fib, etc) vs atypical seizures vs TIA events vs other Likely due to autonomic dysfunction. will hold blood pressure medications. WIll monitor overnight, repeat BP did not show orthostasis. Hoping this continues, If not will consider adding midodrine. Also discussed cutting back the carbilevodopa but family preffered to continue this medication. -plan: -check orthostatic BPs Qshift -HOLD amlodipine, HOLD flomax, HOLD losartan -MRI brain - r/o CVA -CTA head on 09/19/25 showed "Very subtle mild ectasia of the left ICA in the petrous portion measuring 6 mm. 3 mm aneurysmal dilatation M1 segment of right MCA. " -will repeat CTA head to ensure no rupture of one of these vessels -echo -telemetry -s/p IV fluid bolus in ER; will give additional 1 liter of NS overnight -if indeed he is orthostatic consider - -compression stockings -midodrine or florinef -if telemetry is normal while here could consider outpatient Holter or event monitor -events do not sound like atypical seizures - defer on EEG for now #posterior neck pain during episodes - -atypical headache due to hypoperfusion from severe hypotension during episodes? -CTA neck negative on 09/19/25 -CT cervical spine on 09/19/25 without fracture; has DDD/DJD but mild-moderate only #HTN - -patient is on amlodipine, losartan, and flomax -in light of hypotension at home today - and given the concern for orthostasis - hold all 3 meds upon admission -check orthostatics Qshift #h/o seizures - -on depakote 500mg BID -check depakote level in am tomorrow #hypomagnesemia - -replace with IV mag sulfate 3gm x 1 -repeat level am -presenting level today 1.5 #hypothyroidism - -TSH on 09/19/25 and today both suppressed -will lower levothyroxine from 125mcg daily to 112mcg daily -repeat TSH as outpatient in 6 weeks #intracranial aneurysms - -repeat CTA head today - r/o rupture of aneurysm in light of headache, etc. #parkinson's disease - -cont carbidopa-levodopa 2 tabs TID -PT/OT while here #hyperlipidemia - -cont statin #pre-DM - -check a1c in am -hold metformin -BSGs ac/hs -novolog SSI -DM diet #COPD - -no exacerbation at this time #GERD - -cont pepcid -cont PPI #DVT proph - -if patient stays beyond tomorrow add chemical DVT Proph pt's family extensively updated at bedside during the admission process pt is on plavix - due to prior TIA? place on observation status Admission HPI Per Admitting Provider 70yo male with Parkinson's disease, intracranial aneurysms, cognitive impairment/dementia, pre-diabetes, seizure disorder, hyperlipidemia, hypothyroidism, COPD, GERD, and prior tobacco use (using medical THC however) presents from home via EMS after an episode of near-syncope (vs syncope) in his bathroom. Patient was in his usual health this morning upon awakening. About 930am he went to the bathroom and had a bowel movement. He reports that he was NOT straining at stool. Upon getting up from the toilet he immediately felt dizzy/lightheaded/weak then subsequently fell to the ground. His family found him straddled between the bathroom & hallway. He was pale. He was shaky per his . 911 was called and EMS was summoned. Upon EMS arrival to the house his BP was 70/44. Patient himself does think he passed out completely. reports during today's episode and prior episodes he is "out of it" and confused. Although he had shakes during the spell today this looks very different than his prior seizures years ago. Patient denies hitting his head. Patient reports he has at least 3-4 brief episodes of feeling dizzy/lightheaded upon standing on daily basis. The lightheaded feeling passes within a minute or two. He does have occasional heart racing/palpitations with these spells. Over the last 3-4 weeks he has had 4-5 more severe spells that were similar to today's episode. He was evaluated in our ER on 09/19/25 for one of these spells, underwent CTA head/neck and other work-up, then released to home. On another episode he was walking down the steps into his daughter's basement and when he got to the bottom of the steps he felt dizzy/lightheaded. BP during that episode was 60/34. In addition to the above he reports that he has pain at the base of his posterior neck when he has these spells. The pain lasts for a while following the episodes. also reports that his "breathing seems rapid and hard" during near-syncopal events. Denies any vertigo. He denies any episode that comes on without warning. Discharge Plan Discharge Items Reason For Visit: SYNCOPE, FALL Condition on Discharge: Good Follow-up/Referrals: Lj Randle MD [Primary Care Provider] - 10/15/25 11:00 am Addtl Attending Provider Instructions: For your neck pain, you may follow up with either Dr. Gomez from [facility]. For your dizziness we will have you continue midodrine Pending Studies at Discharge: No Medications and DC Order Prescriptions: New midodrine 2.5 mg Tablet 2.5 mg PO BID@0800,1400 Qty: 60 0RF Continued levothyroxine 125 mcg capsule 125 mcg PO QAM Qty: 30 2RF divalproex 500 mg tablet,delayed release (DR/EC) 500 mg PO BID Qty: 60 2RF pantoprazole 40 mg tablet,delayed release (DR/EC) 40 mg PO QAM famotidine 40 mg tablet 40 mg PO QPM fluoxetine 20 mg capsule 20 mg PO QAM (DME) lancets [Easy Touch Lancets] 30 gauge misc See Rx Instructions .Route Rx Instructions: As directed metformin 1,000 mg tablet 1,000 mg PO BID (DME) blood-glucose meter Kit See Rx Instructions .Route Rx Instructions: As directed aspirin 81 mg tablet,delayed release (DR/EC) 81 mg PO DAILY atorvastatin 80 mg tablet 80 mg PO QAM MEDICAL MARIJUANA 0 dose PO UD Patient Comments: unable to verify doxepin 25 mg capsule 25 mg PO QAM mecobalamin (vitamin B12) 1,000 mcg tablet,disintegrating 1,000 mcg sublingual QAM Rx Instructions: place tablet under tongue and allow to dissolve for at least30 secs before swallowing clopidogrel 75 mg tablet 75 mg PO QAM tamsulosin 0.4 mg capsule 0.4 mg PO QPM albuterol sulfate 90 mcg/actuation HFA aerosol inhaler 0 puff inhalation QID PRN (Reason: shortness of breath or wheezing) Patient Comments: 10/02- Not on faxed list unable to verify cholecalciferol (vitamin D3) 25 mcg (1,000 unit) capsule 25 mcg PO QAM carbidopa-levodopa 25-100 mg tablet 2 tab PO TID doxepin 75 mg capsule 75 mg PO QPM Held amlodipine 10 mg tablet 0 mg PO DAILY Hold Instructions: Provider's Order Patient Comments: 10/02- Not on faxed list unable to verify. original: 10 mg po daily; fill history of 09/20 28 day supply #28 losartan 25 mg tablet 25 mg PO QAM Hold Instructions: Provider's Order Admission Data Admit Date/Time: 10/02/25 15:55 Attending Provider: Richard June Admit Provider: Shree Maya Primary Care Provider: Lj Randle Other Providers: Shree Maya; [facility] Stay Data Consultations 10/02/25 14:28 ED Decision to Admit Stat Diagnostic Imagining Performed 10/02/25 15:51 CTA head w con [CT angio head w con] Stat MR brain wo con Routine 10/03/25 14:25 MR cervical spine wo con Routine Pending Results Patient Have Any Pending Studies at Discharge: No Discharge Instructions Given to Patient (Per Discharging Provider) For your neck pain, you may follow up with either Dr. Gomez from [facility] management. For your dizziness we will have you continue midodrine Coding Diagnoses Near syncope R55 Multiple falls R29.6 Hypotension I95.9 Hypotension type: unspecified hypotension type Parkinson disease G20.A1 COPD (chronic obstructive pulmonary disease) J44.9 HLD (hyperlipidemia) E78.5 Hypothyroidism E03.9 GERD (gastroesophageal reflux disease) K21.9 Intracranial aneurysm I67.1 Moderate cognitive impairment R41.89 Prediabetes R73.03 Depression with anxiety F41.8 Epilepsy G40.909
[2025-10-04] MEDS: MIDODRINE HCL 2.5 MG TAB PO ONE (10:34)
[2025-10-04 10:52] VITALS: BP 129/74; PULSE 81
[2025-10-04] MEDS ORDERED: MIDODRINE HCL 2.5 MG TAB PO SCH (14:00)
--- NOTE | 2025-10-04 14:24 | XCELERA ---
[id number]
--- NOTE | 2025-10-05 08:15 | Electrocardiogram Report ---
Test Reason : Blood Pressure : */* mmHG Vent. Rate : 82 BPM Atrial Rate : 82 BPM P-R Int : 190 ms QRS Dur : 92 ms QT Int : 368 ms P-R-T Axes : 53 -1 38 degrees QTcB Int : 429 ms Normal sinus rhythm Incomplete right bundle branch block Borderline ECG When compared with ECG of 19-Sep-2025 15:11, No significant change was found Confirmed by Ian Barrios ([id number]) on 10/05/2025 8:14:52 AM Referred By: REFERRED SELF Confirmed By: Ian Barrios
== END 2025-10-04 11:07 | disposition home health service (06) ==
LOC: SUATTDRO → 4W 11:12 → ED 11:12 → SUATTDRO 15:55 → 4W 17:12

== ENCOUNTER 2025-10-19 22:38 | Observation (INO) ==
--- NOTE | 2025-10-19 23:11 | Emergency Department Note ---
Impression & Plan Influenza A, Parkinson disease, Fall, Acute exacerbation of chronic obstructive pulmonary disease (COPD), Elevated lactic acid level ED Provider Note ED Provider Note NAME: AMISHA CALLAWAY AGE:70 SEX: Male : 1955 ARRIVES VIA: EMS INFORMANT: Patient ED PROVIDER(s): Sara Zapata DO CHIEF COMPLAINT: fall out of his chair, URI symptoms HPI: This is a 70-year-old male who presents to the emergency department due to concern as he fell out of his chair tonight and was developing URI symptoms over the last 2 days. states he has parkinsons and early dementia but he seemed "hyperactive" today, not acting normally. Patient states he did have a runny nose stuffy nose, he denies any chest pain, abdominal, vomiting or diarrhea. states that he did not hit his head when he fell at home chair and did not lose consciousness. No recent change in medications. They have been around several sick family members recently. Patient denies any neck or back pain, or concern for extremity injury. Patient states he does have a cough that is intermittently productive of yellow sputum, he denies hemoptysis. Patient is a former smoker and does have a history of COPD. He does not wear oxygen at home. No recent leg swelling. No history of FL or CHF. PAST MEDICAL HISTORY:See Below PAST SURGICAL HISTORY:See Below FAMILY HISTORY:See Below SOCIAL HISTORY:See Below HOME MEDICATIONS:See Below ALLERGIES:See Below VITALS:See Below PHYSICAL EXAMINATION: GENERAL: alert, well appearing, well nourished, no distress, non-toxic HEAD: nc/at EYE EXAM: normal conjunctiva, PERRL and EOM's grossly intact OROPHARYNX: no exudate, no erythema, lips, buccal mucosa, and tongue normal and mucous membranes are moist NECK: supple, no nuchal rigidity, no adenopathy, non-tender, FROM LUNGS: Decreased bilateral to auscultation. Normal chest wall mechanics, no r/r, scattered expiratory wheeze HEART: no murmurs, S1 normal and S2 normal ABDOMEN: abdomen soft, non-tender, normo-active bowel sounds, no masses, no rebound or guarding. SKIN: no rashes, petechiae, orbruising UPPER EXTREMITIES: upper extremities are grossly normal. FROM, nml pulses b/l. No evidence of trauma or deformity. LOWER EXTREMITIES: No pitting edema. FROM, nml pulses b/l. No evidence of injury deformity. NEURO EXAM: Normal sensorium, cranial nerves II-XII grossly intact, normal speech, no facial droop,nogross weakness of arms, no gross weakness of legs. Gross sensation intact. No ataxia. Vital Signs: reviewed and remarkable Differential Diagnosis: pneumonia, bronchitis, COPD/Asthma exacerbation, pneumothorax, pulmonary embolism, congestive heart failure, acute coronary syndrome, as well as others were considered MEDICAL DECISION MAKING: This is a 70-year-old male presents to the emergency department due to concern for evolving URI symptoms, increased weakness, and falling out of his chair this evening. Family at bedside helps provide history as patient does have early dementia related to his advanced Parkinson's disease. Patient was afebrile and hemodynamically stable. Labs drawn and sent, IV established, EKG and CXR performed and interpreted at bedside, and patient placed on telemetry. Due to concern for trauma as well as increased weakness, patient sent for CT head as well as C-spine. Nasal swab obtained and sent for viral respiratory panel given known sick contacts recently. Swab was positive for influenza A. Patient was given a DuoNeb given history of tobacco abuse and likely underlying COPD with accompanying wheezing on auscultation. Patient was given IV fluids additionally. He was noted to be persistently tachycardic despite IVF and reporting that he felt better. Initial lactic acid was slightly elevated however repeat was increased. Patient was given additional IV fluids and lactic was rechecked again and continued to increase. Patient reported feeling improved to family at bedside felt that he looked closer to normal than earlier this evening. Patient denied any difficulty breathing or worsening pain. Patient received additional IV fluids, further nebulizer treatments, and was noted to still be tachycardic still had an uptrending lactic acid. Due to concern for advanced age, comorbid conditions, acute viral illness and underlying COPD, case discussed with the hospitalist team for additional evaluation and management. Consultation(s): 0505: Discussed with Dr. Lin, [facility] hospitalist team, for additional evaluation and management. ER Treatment Provided: See below Diagnostics Interpreted By Me: -ECG: Sinus tachycardia at 111, normal axis, normal intervals, no acute ST/T wave changes -Cardiac Monitoring: An order was placed for continuous cardiac monitoring. The monitor shows a rate of 106 with sinus tachycardia rhythm. -Laboratory studies: As stated above and show below. -Imaging studies: X-ray Chest: A single view study of the chest was reviewed and was negative for cardiomegaly, focal infiltrate, effusion, pulmonary edema, or wide mediastinum. Triage Nursing Note Reviewed Prior/Outside Records Reviewed Past Med/Surg History Problem List (Updated 10/20/25 @ 05:32 by Jacob Lin MD) Bronchitis Elevated lactic acid level (Acute) Acute exacerbation of chronic obstructive pulmonary disease (COPD) (Acute) Fall (Acute) Influenza A (Acute) Frequent falls (Acute) Near syncope (Acute) Hypotension (Acute) Parkinson disease (Acute) Heart murmur Tremor Medical History Prostate cancer Hx TIA/stroke w/o resid Multiple falls Epilepsy Depression with anxiety Chronic nonalcoholic liver disease Prediabetes Ambulatory dysfunction Moderate cognitive impairment Near syncope Intracranial aneurysm GERD (gastroesophageal reflux disease) Hypothyroidism HLD (hyperlipidemia) COPD (chronic obstructive pulmonary disease) Parkinson disease Surgical History History of carpal tunnel release of both wrists H/O thumb surgery History of cholecystectomy Family History Mother Stomach cancer Father Cancer Brother Cancer Daughter Fapjj-Ycpgzmuie-Kpwcs syndrome Son Coronary heart disease Daughter Thoracic aortic aneurysm Pacemaker Social History (Updated 10/20/25 @ 04:54 by Sara Zapata DO) Smoking Status: Former smoker Tobacco Type: Cigarettes packs per day: 1.5; Second Hand Exposure: Yes; Do You Dip or Chew Tobacco: No; Hx Alcohol Use: No Hx Substance Use: Yes Last Used Substance: Days (ago) Last Used Substance Other:: Pt reports daily use; has medical card Preferred Language: Luxembourgish Communication Ability: Effective Industrial Relations Representative Required: No Beliefs That Will Affect Care: None marital status: Current Living Situation: Spouse current occupational status: retired How many Children do You have: 4 Feels Safe at Home: Yes Assistive Devices: Cane, Glasses and Walker Allergies Allergies Allergy/AdvReac Type Severity Reaction Status Date / Time nickel Allergy Unknown Unknown Verified 10/20/25 12:48 lamotrigine [From Lamictal] Allergy Swelling Verified 10/02/25 13:44 of Lip/Tongue/Throat Home Meds Home Medications Medication Instructions Recorded Confirmed MEDICAL MARIJUANA 0 dose PO UD 03/15/24 10/20/25 aspirin 81 mg tablet,delayed 81 mg PO DAILY 03/15/24 10/20/25 release atorvastatin 80 mg tablet 80 mg PO QAM 03/15/24 10/20/25 blood-glucose meter 03/15/24 10/20/25 famotidine 40 mg tablet 40 mg PO QPM 03/15/24 10/20/25 fluoxetine 20 mg capsule 20 mg PO QAM 03/15/24 10/20/25 lancets 30 gauge (Easy Touch 03/15/24 10/20/25 Lancets) metformin 1,000 mg tablet 1,000 mg PO BID 03/15/24 10/20/25 pantoprazole 40 mg tablet,delayed 40 mg PO QAM 03/15/24 10/20/25 release doxepin 25 mg capsule 25 mg PO QAM 03/21/24 10/20/25 doxepin 75 mg capsule 75 mg PO QPM 09/19/25 10/20/25 losartan 25 mg tablet 25 mg PO QAM 09/19/25 10/20/25 cholecalciferol (vitamin D3) 25 25 mcg PO QAM 10/02/25 10/20/25 mcg (1,000 unit) capsule clopidogrel 75 mg tablet 75 mg PO QAM 10/02/25 10/20/25 tamsulosin 0.4 mg capsule 0.4 mg PO QPM 10/02/25 10/20/25 amlodipine 10 mg tablet 10 mg PO DAILY 10/20/25 10/20/25 carbidopa 25 mg-levodopa 250 mg 2 tab PO TID 10/20/25 10/20/25 tablet cyanocobalamin (vitamin B-12) 1,000 mcg PO Q OTHER DAY 10/20/25 10/20/25 1,000 mcg tablet divalproex 500 mg tablet,delayed 500 mg PO AMHS 10/20/25 10/20/25 release levothyroxine 112 mcg tablet 112 mcg PO QAM 10/20/25 10/20/25 Previous Rx's Medication Instructions Recorded midodrine 2.5 mg tablet 2.5 mg PO BID@0800,1400 #60 tabs 10/04/25 Results & Data (ED) Vital Signs Vital Signs - 24 hr 10/19/25 22:45 10/19/25 22:45 10/19/25 22:46 Temperature 37.8 C H Temperature Source Oral Pulse Rate 114 H 114 H 114 H Pulse Rate from SpO2 Sensor 114 H Pulse Rhythm Regular Pulse Strength Normal Respiratory Rate 22 30 H Respiratory Effort / Characteristics Non-Labored Spontaneous Respiratory Depth Normal Respiratory Pattern Regular Blood Pressure 194/88 H Blood Pressure Mean 123 Pulse Oximetry 94 93 Oxygen Delivery Method Room Air Room Air Sepsis Recent Fever Within 48 Hours Yes Sepsis New/Unexplained Change in Mental Status Yes Sepsis Action Taken by Nursing Physician Notified 10/19/25 23:00 10/19/25 23:18 10/19/25 23:30 Temperature Temperature Source Pulse Rate 109 H 112 H 114 H Pulse Rate from SpO2 Sensor 109 H 110 H 112 H Pulse Rhythm Pulse Strength Respiratory Rate 24 22 22 Respiratory Effort / Characteristics Respiratory Depth Respiratory Pattern Blood Pressure 162/93 H 160/89 H 149/72 H Blood Pressure Mean 116 112 97 Pulse Oximetry 92 94 96 Oxygen Delivery Method Room Air Room Air Room Air Sepsis Recent Fever Within 48 Hours Sepsis New/Unexplained Change in Mental Status Sepsis Action Taken by Nursing 10/19/25 23:33 10/20/25 00:00 10/20/25 00:30 Temperature Temperature Source Pulse Rate 110 H 115 H 108 H Pulse Rate from SpO2 Sensor 111 H 115 H 112 H Pulse Rhythm Pulse Strength Respiratory Rate 24 24 26 H Respiratory Effort / Characteristics Respiratory Depth Respiratory Pattern Blood Pressure 178/84 H 161/88 H Blood Pressure Mean 115 112 Pulse Oximetry 94 95 92 Oxygen Delivery Method Room Air Room Air Room Air Sepsis Recent Fever Within 48 Hours Sepsis New/Unexplained Change in Mental Status Sepsis Action Taken by Nursing 10/20/25 01:00 10/20/25 01:15 10/20/25 01:18 Temperature Temperature Source Pulse Rate 108 H 106 H 108 H Pulse Rate from SpO2 Sensor 108 H 106 H 108 H Pulse Rhythm Pulse Strength Respiratory Rate 24 24 24 Respiratory Effort / Characteristics Respiratory Depth Respiratory Pattern Blood Pressure 152/83 H 152/83 H Blood Pressure Mean 106 106 Pulse Oximetry 93 94 94 Oxygen Delivery Method Room Air Room Air Room Air Sepsis Recent Fever Within 48 Hours Sepsis New/Unexplained Change in Mental Status Sepsis Action Taken by Nursing 10/20/25 01:30 10/20/25 02:00 10/20/25 02:30 Temperature Temperature Source Pulse Rate 106 H 110 H 106 H Pulse Rate from SpO2 Sensor 106 H 105 H 107 H Pulse Rhythm Pulse Strength Respiratory Rate 25 H 24 22 Respiratory Effort / Characteristics Respiratory Depth Respiratory Pattern Blood Pressure 163/89 H 147/90 H 165/86 H Blood Pressure Mean 113 109 112 Pulse Oximetry 93 94 93 Oxygen Delivery Method Room Air Room Air Room Air Sepsis Recent Fever Within 48 Hours Sepsis New/Unexplained Change in Mental Status Sepsis Action Taken by Nursing 10/20/25 02:45 10/20/25 03:00 10/20/25 03:30 Temperature Temperature Source Pulse Rate 106 H 104 H 102 H Pulse Rate from SpO2 Sensor 106 H 103 H Pulse Rhythm Pulse Strength Respiratory Rate 24 20 Respiratory Effort / Characteristics Respiratory Depth Respiratory Pattern Blood Pressure 160/75 H 149/66 H Blood Pressure Mean 103 93 Pulse Oximetry 94 94 Oxygen Delivery Method Room Air Room Air Sepsis Recent Fever Within 48 Hours Sepsis New/Unexplained Change in Mental Status Sepsis Action Taken by Nursing 10/20/25 04:00 10/20/25 04:03 10/20/25 04:30 Temperature Temperature Source Pulse Rate 104 H 104 H 105 H Pulse Rate from SpO2 Sensor 104 H 104 H 105 H Pulse Rhythm Pulse Strength Respiratory Rate 22 24 24 Respiratory Effort / Characteristics Respiratory Depth Respiratory Pattern Blood Pressure 169/88 H 138/88 Blood Pressure Mean 115 104 Pulse Oximetry 96 95 94 Oxygen Delivery Method Room Air Room Air Room Air Sepsis Recent Fever Within 48 Hours Sepsis New/Unexplained Change in Mental Status Sepsis Action Taken by Nursing 10/20/25 05:00 Temperature Temperature Source Pulse Rate 110 H Pulse Rate from SpO2 Sensor 111 H Pulse Rhythm Pulse Strength Respiratory Rate 22 Respiratory Effort / Characteristics Respiratory Depth Respiratory Pattern Blood Pressure 169/83 H Blood Pressure Mean 111 Pulse Oximetry 95 Oxygen Delivery Method Room Air Sepsis Recent Fever Within 48 Hours Sepsis New/Unexplained Change in Mental Status Sepsis Action Taken by Nursing Laboratory Data 10/19/25 22:45 10/19/25 22:45 Lab Results 10/19/25 10/19/25 10/20/25 Range/Units 22:45 23:45 01:07 WBC 6.53 (4.8-10.8) K/ul RBC 3.62 L (4.70-6.10) M/uL Hgb 10.7 L (14.0-18.0) g/dL Hct 32.3 L (42.0-52.0) % MCV 89.2 (80.0-100.0) fL MCH 29.6 (25.0-34.0) pg MCHC 33.1 (32.0-36.0) g/dL RDW Std Deviation 47.5 H (36.4-46.3) fL RDW Coeff of Teresa 14.6 H (11.5-14.5) % Plt Count 217 (130-400) K/uL MPV 9.9 (9.4-12.4) fL Immature Gran % (Auto) 0.5 % Neut % (Auto) 82.3 % Lymph % (Auto) 4.4 % Haywood % (Auto) 12.1 % Eos % (Auto) 0.5 % Baso % (Auto) 0.2 % Neut # (Auto) 5.38 (1.40-6.50) K/uL Lymph # (Auto) 0.29 L (1.20-3.40) K/uL Haywood # (Auto) 0.79 H (0.11-0.59) K/uL Eos # (Auto) 0.03 (0.00-0.50) K/uL Baso # (Auto) 0.01 (0.00-0.20) K/uL Immature Gran # (Auto) 0.03 (0.01-0.20) K/uL PT 11.9 (9.0-12.0) Seconds INR 1.1 (0.9-1.1) VBG pH 7.40 (7.36-7.41) VBG pCO2 48 (38-50) mmHg VBG pO2 35 mmHg VBG HCO3 30 mmol/L VBG O2 Saturation < 60.0 % VBG Base Excess 4.0 mEq/L Sodium 139 (136-145) mmol/L Potassium 4.3 (3.5-5.1) mmol/L Chloride 103 (98-107) mmol/L Carbon Dioxide 28 (21-32) mmol/L Anion Gap 8 (3-11) BUN 11 (6-23) mg/dl Creatinine 1.11 (0.6-1.4) mg/dl Est Cr Clr Drug Dosing 65.4 ml/min eGFR 70.55 BUN/Creatinine Ratio 9.9 L (10-20) Glucose 111 H (70-99(Fasting)) mg/dl Lactate 2.5 H* 2.8 H* (0.4-2.0) mmol/L Calcium 8.9 (8.6-10.3) mg/dl Magnesium 1.5 L (1.7-2.4) mg/dl Total Bilirubin 0.4 (0.2-1.0) mg/dl AST 9 L (13-39) U/L ALT 3 L (7-52) U/L Alkaline Phosphatase 37 (34-104) U/L Troponin I High Sens 11.9 (0-20) pg/ml Total Protein 7.1 (6.0-8.3) gm/dl Albumin 3.8 (3.4-5.0) gm/dl Globulin 3.3 (2.5-4.0) gm/dl Albumin/Globulin Ratio 1.2 (0.9-2) Procalcitonin 0.03 (0-0.5) ng/ml Adenovirus (PCR) Not Detected (NotDetected) B. pertussis DNA (PCR) Not Detected (NotDetected) B.parapertussis DNA PCR Not Detected (NotDetected) C. pneumoniae DNA (PCR) Not Detected (NotDetected) Coronavirus OC43 (PCR) Not Detected (NotDetected) Coronavirus HKU1 (PCR) Not Detected (NotDetected) Coronavirus 229E (PCR) Not Detected (NotDetected) SARS-CoV-2 (PCR) Not Detected (NotDetected) Coronavirus NL63 (PCR) Not Detected (NotDetected) Human Metapneumovir PCR Not Detected (NotDetected) Influenza A (H3) PCR DETECTED A (NotDetected) Influenza Type B (PCR) Not Detected (NotDetected) M. pneumoniae (PCR) Not Detected (NotDetected) Parainfluenza 1 (PCR) Not Detected (NotDetected) Parainfluenza 2 (PCR) Not Detected (NotDetected) Parainfluenza 3 (PCR) Not Detected (NotDetected) Parainfluenza 4 (PCR) Not Detected (NotDetected) RSV (PCR) Not Detected (NotDetected) Entero/Rhino (PCR) Not Detected (NotDetected) 10/20/25 10/20/25 Range/Units 03:10 04:32 WBC (4.8-10.8) K/ul RBC (4.70-6.10) M/uL Hgb (14.0-18.0) g/dL Hct (42.0-52.0) % MCV (80.0-100.0) fL MCH (25.0-34.0) pg MCHC (32.0-36.0) g/dL RDW Std Deviation (36.4-46.3) fL RDW Coeff of Teresa (11.5-14.5) % Plt Count (130-400) K/uL MPV (9.4-12.4) fL Immature Gran % (Auto) % Neut % (Auto) % Lymph % (Auto) % Haywood % (Auto) % Eos % (Auto) % Baso % (Auto) % Neut # (Auto) (1.40-6.50) K/uL Lymph # (Auto) (1.20-3.40) K/uL Haywood # (Auto) (0.11-0.59) K/uL Eos # (Auto) (0.00-0.50) K/uL Baso # (Auto) (0.00-0.20) K/uL Immature Gran # (Auto) (0.01-0.20) K/uL PT (9.0-12.0) Seconds INR (0.9-1.1) VBG pH (7.36-7.41) VBG pCO2 (38-50) mmHg VBG pO2 mmHg VBG HCO3 mmol/L VBG O2 Saturation % VBG Base Excess mEq/L Sodium (136-145) mmol/L Potassium (3.5-5.1) mmol/L Chloride (98-107) mmol/L Carbon Dioxide (21-32) mmol/L Anion Gap (3-11) BUN (6-23) mg/dl Creatinine (0.6-1.4) mg/dl Est Cr Clr Drug Dosing ml/min eGFR BUN/Creatinine Ratio (10-20) Glucose (70-99(Fasting)) mg/dl Lactate 2.8 H* 4.1 H* (0.4-2.0) mmol/L Calcium (8.6-10.3) mg/dl Magnesium (1.7-2.4) mg/dl Total Bilirubin (0.2-1.0) mg/dl AST (13-39) U/L ALT (7-52) U/L Alkaline Phosphatase (34-104) U/L Troponin I High Sens (0-20) pg/ml Total Protein (6.0-8.3) gm/dl Albumin (3.4-5.0) gm/dl Globulin (2.5-4.0) gm/dl Albumin/Globulin Ratio (0.9-2) Procalcitonin (0-0.5) ng/ml Adenovirus (PCR) (NotDetected) B. pertussis DNA (PCR) (NotDetected) B.parapertussis DNA PCR (NotDetected) C. pneumoniae DNA (PCR) (NotDetected) Coronavirus OC43 (PCR) (NotDetected) Coronavirus HKU1 (PCR) (NotDetected) Coronavirus 229E (PCR) (NotDetected) SARS-CoV-2 (PCR) (NotDetected) Coronavirus NL63 (PCR) (NotDetected) Human Metapneumovir PCR (NotDetected) Influenza A (H3) PCR (NotDetected) Influenza Type B (PCR) (NotDetected) M. pneumoniae (PCR) (NotDetected) Parainfluenza 1 (PCR) (NotDetected) Parainfluenza 2 (PCR) (NotDetected) Parainfluenza 3 (PCR) (NotDetected) Parainfluenza 4 (PCR) (NotDetected) RSV (PCR) (NotDetected) Entero/Rhino (PCR) (NotDetected) Administered Medications Acetaminophen (Acetaminophen 325 Mg Tab) 650 mg PO Q4H PRN PRN Reason: Pain or Fever Stop: 11/19/25 09:27 Last Admin: 10/20/25 10:31 Dose: 650 mg Documented By: KAY Albuterol (Albut/Ipratrop 3mg/0.5mg Neb 3 Ml Vial) 3 ml NEB Q2H PRN; Protocol PRN Reason: dyspnea Stop: 11/19/25 05:31 Last Admin: 10/20/25 21:11 Dose: 3 ml Documented By: Admin: 10/20/25 18:14 Dose: 3 ml Documented By: Admin: 10/20/25 08:12 Dose: 3 ml Documented By: JUAN C Amlodipine Besylate (Amlodipine Besylate 5 Mg Tab) 10 mg PO DAILY [facility], [facility]1983 Stop: 11/19/25 09:59 Last Admin: 10/20/25 10:55 Dose: 10 mg Documented By: KAY Aspirin (Aspirin 81 Mg Ectab) 81 mg PO DAILY VERONIQUE Stop: 11/19/25 09:59 Last Admin: 10/20/25 10:55 Dose: 81 mg Documented By: KAY Atorvastatin Calcium (Atorvastatin 40 Mg Tab) 80 mg PO QAM [facility], [facility]–1983 Stop: 11/19/25 09:59 Last Admin: 10/20/25 11:35 Dose: 80 mg Documented By: KAY Carbidopa/Levodopa (Carbidopa/Levodopa 25-250 1 Ea Tab) 2 tab PO TID [facility], [facility]1983 Stop: 11/19/25 09:59 Last Admin: 10/20/25 21:33 Dose: 2 tab Documented By: sixto Admin: 10/20/25 12:56 Dose: 2 tab Documented By: Admin: 10/20/25 10:55 Dose: 2 tab Documented By: KAY Clopidogrel Bisulfate (Clopidogrel Bisulfate 75 Mg Tab) 75 mg PO QAM [facility], [facility]1983 Stop: 11/19/25 09:59 Last Admin: 10/20/25 10:55 Dose: 75 mg Documented By: KAY Divalproex Sodium (Divalproex Delay Release 500 Mg Tab) 500 mg PO AMHS [facility], [facility]–1983 Stop: 11/19/25 09:59 Last Admin: 10/20/25 21:32 Dose: 500 mg Documented By: sixto Admin: 10/20/25 10:56 Dose: 500 mg Documented By: KAY Doxepin HCl (Doxepin Hcl 25 Mg Capsule) 25 mg PO QAM [facility], [facility]1983 Stop: 11/19/25 09:59 Last Admin: 10/20/25 10:54 Dose: 25 mg Documented By: KAY Doxepin HCl (Doxepin Hcl 75 Mg Capsule) 75 mg PO QPM [facility], [facility]1983 Stop: 11/19/25 20:59 Last Admin: 10/20/25 21:32 Dose: 75 mg Documented By: sixto Famotidine (Famotidine 40 Mg Tablet) 40 mg PO QPM VERONIQUE Stop: 11/19/25 20:59 Last Admin: 10/20/25 21:33 Dose: 40 mg Documented By: sixto Fluoxetine HCl (Fluoxetine Hcl 20 Mg Cap) 20 mg PO QAM [facility], [facility]–1983 Stop: 11/19/25 09:59 Last Admin: 10/20/25 10:54 Dose: 20 mg Documented By: KAY Sodium Chloride (Nss) 1,000 mls @ 125 mls/hr IV .Q8H [facility], [facility]–1983 Stop: 10/22/25 22:59 Last Admin: 10/20/25 21:22 Dose: 125 mls/hr Documented By: sixto Infusion: 10/20/25 21:22 Dose: Infused Documented By: sixto Admin: 10/20/25 15:00 Dose: 125 mls/hr Documented By: Infusion: 10/20/25 14:11 Dose: Infused Documented By: Admin: 10/20/25 06:11 Dose: 125 mls/hr Documented By: Infusion: 10/20/25 03:19 Dose: Infused Documented By: Infusion: 10/20/25 01:59 Dose: 600 mls/hr Documented By: Infusion: 10/20/25 01:57 Dose: 500 mls/hr Documented By: Admin: 10/19/25 23:19 Dose: 125 mls/hr Documented By: TRELL Insulin Aspart (Insulin Aspart Per Unit Charge) 0 units SC ACHS [facility], [facility]1983 Stop: 11/19/25 09:59 Last Admin: 10/20/25 21:03 Dose: Not Given Documented By: sixto Admin: 10/20/25 17:51 Dose: 7 units Documented By: KAY Co-signed By: oseas Admin: 10/20/25 12:55 Dose: 3 units Documented By: KAY Co-signed By: oseas Admin: 10/20/25 11:01 Dose: Not Given Documented By: KAY Levothyroxine Sodium (Levothyroxine Sodium 112 Mcg Tablet) 112 mcg PO DAILYBB [facility], [facility]1983 Stop: 11/19/25 09:59 Last Admin: 10/20/25 10:56 Dose: 112 mcg Documented By: KAY Losartan Potassium (Losartan Potassium 25 Mg Tab) 25 mg PO QAM [facility], [facility]1983 Stop: 11/19/25 09:59 Last Admin: 10/20/25 10:56 Dose: 25 mg Documented By: KAY Midodrine (Midodrine Hcl 2.5 Mg Tab) 2.5 mg PO BID@0800,1400 [facility], [facility]1983 Stop: 11/19/25 09:59 Last Admin: 10/20/25 14:06 Dose: Not Given Documented By: Admin: 10/20/25 11:35 Dose: Not Given Documented By: KAY Oseltamivir Phosphate (Oseltamivir Phosphate 75 Mg Cap) 75 mg PO BID [facility], [facility]1983 Stop: 10/25/25 20:59 Last Admin: 10/20/25 21:34 Dose: 75 mg Documented By: sixto Pantoprazole Sodium (Pantoprazole 40 Mg Tab) 40 mg PO QAM VERONIQUE Stop: 11/19/25 09:59 Last Admin: 10/20/25 10:55 Dose: 40 mg Documented By: KAY Tamsulosin HCl (Tamsulosin Hcl 0.4 Mg Cap) 0.4 mg PO QPM VERONIQUE Stop: 11/19/25 20:59 Last Admin: 10/20/25 21:34 Dose: 0.4 mg Documented By: sixto Vitamin D (Cholecalciferol 25 Mcg (1000 Units) Tab) 25 mcg PO QAM [facility]1983 Stop: 11/19/25 09:59 Last Admin: 10/20/25 10:54 Dose: 25 mcg Documented By: KAY Discontinued Medications Albuterol (Albut/Ipratrop 3mg/0.5mg Neb 3 Ml Vial) 3 ml NEB NOW STA; Protocol Stop: 10/20/25 01:51 Last Admin: 10/20/25 01:55 Dose: 3 ml Documented By: TRELL Albuterol (Albut/Ipratrop 3mg/0.5mg Neb 3 Ml Vial) 3 ml NEB NOW STA; Protocol Stop: 10/20/25 04:14 Last Admin: 10/20/25 04:27 Dose: 3 ml Documented By: TRELL Magnesium Sulfate/Dextrose (Magnesium Sulfate / D5w) 1 gm in 100 mls @ 100 mls/hr IV NOW STA Stop: 10/20/25 00:34 Last Infusion: 10/20/25 01:19 Dose: Infused Documented By: Admin: 10/19/25 23:51 Dose: 100 mls/hr Documented By: TRELL Sodium Chloride (Nss) 500 mls @ 999 mls/hr IV .Q31M ONE Stop: 10/20/25 04:04 Last Infusion: 10/20/25 04:24 Dose: Infused Documented By: Admin: 10/20/25 03:42 Dose: 999 mls/hr Documented By: TRELL Sodium Chloride (Nss) 500 mls @ 999 mls/hr IV .Q31M ONE Stop: 10/20/25 04:43 Last Infusion: 10/20/25 05:08 Dose: Infused Documented By: Admin: 10/20/25 04:27 Dose: 999 mls/hr Documented By: TRELL Magnesium Sulfate/Dextrose (Magnesium Sulfate / D5w) 1 gm in 100 mls @ 50 mls/hr IV ONE ONE Stop: 10/20/25 07:23 Last Infusion: 10/20/25 07:49 Dose: Infused Documented By: JUAN C Admin: 10/20/25 05:49 Dose: 50 mls/hr Documented By: TRELL Oseltamivir Phosphate (Oseltamivir Phosphate 75 Mg Cap) 75 mg PO NOW STA Stop: 10/20/25 05:18 Last Admin: 10/20/25 05:47 Dose: 75 mg Documented By: TRELL Imaging Data Radiologist's Impression: Head CT 10/19/25 22:54 Exam(s): CT HEAD Without Contrast EXAM: CT Head Without Intravenous Contrast CLINICAL HISTORY: Reason for exam: ams, fall. TECHNIQUE: Axial computed tomography images of the head/brain without intravenous contrast. CTDI is 38.03 mGy and DLP is 1078.44 mGy-cm. Automated exposure control was utilized for the study. A dose lowering technique was utilized adhering to the principles of ALARA. COMPARISON: Prior brain MRI from October 02, 2025. FINDINGS: This study is limited secondary to motion artifact. Brain: Unremarkable. No hemorrhage. No significant white matter disease. No edema. Ventricles: Mild ventriculomegaly. Bones/joints: Remote left lamina papyracea fracture deformity. No acute fracture. Soft tissues: Unremarkable. Sinuses: Unremarkable as visualized. No acute sinusitis. Mastoid air cells: Unremarkable as visualized. No mastoid effusion. IMPRESSION: No evidence of acute intracranial pathology. Electronically signed by: Chacha Mercado MD 10/20/25 04:[address] 10/19/25 22:55 Exam(s): CT C SPINE EXAM: CT Cervical Spine Without Intravenous Contrast CLINICAL HISTORY: Reason for exam: fall. TECHNIQUE: Axial computed tomography images of the cervical spine without intravenous contrast. CTDI is 38.03 mGy and DLP is 1078.44 mGy-cm. Automated exposure control was utilized for the study. A dose lowering technique was utilized adhering to the principles of ALARA. COMPARISON: Prior MRI of the cervical spine from October 03, 2025. FINDINGS: Vertebrae: There is a mild generalized curved to the right straightening normal cervical lordosis. There is incomplete segmentation of C6 and C7. No acute fracture. Discs/spinal canal/neural foramina: No acute findings. There is a critical spinal canal stenosis at C3-4. Soft tissues: Unremarkable. IMPRESSION: No evidence of acute cervical spine pathology. There is a critical spinal canal stenosis at C3-4. Recommend MRI of the cervical spine to evaluate for myelopathy. Electronically signed by: Chacha Mercado MD 10/20/25 03:55 AM Discharge Plan Visit Data Chief Complaint: Fall Stated Complaint: Fall, Confusion, Weakness, Flu Like Symptoms ED Provider: Sara Zapata Discharge Problem: Influenza A, Parkinson disease, Fall, Acute exacerbation of chronic obstructive pulmonary disease (COPD), Elevated lactic acid level Patient Disposition: Admitted As Inpatient Condition: Fair Discharge Instructions Interventions: ED Discharge Assessment Last Done: 10/20/25 09:09
[2025-10-19 23:15] LABS: Hematocrit (blood only) 32.3 % (42.0-52.0); Hemoglobin 10.7 g/dL (14.0-18.0); Immature Granulocytes # (auto) 0.03 K/uL (0.01-0.20); Immature Granulocytes % (auto) 0.5 %; Mean Corpuscular Hemoglobin 29.6 pg (25.0-34.0); Mean Corpuscular Volume 89.2 fL (80.0-100.0); Platelet Count 217 K/uL (130-400); RDW Standard Deviation 47.5 fL (36.4-46.3); Red Blood Count 3.62 M/uL (4.70-6.10); White Blood Count 6.53 K/ul (4.8-10.8)
[2025-10-19] MEDS: SODIUM CHLORIDE 0.9% 1,000 ML IV SCH (23:19)
[2025-10-19 23:34] LABS: Alanine Aminotransferase 3.0 U/L (7-52); Albumin Globulin Ratio 1.2 (0.9-2); Albumin Level 3.8 gm/dl (3.4-5.0); Alkaline Phosphatase 37.0 U/L (34-104); Anion Gap 8.0 (3-11); Bilirubin,Total 0.4 mg/dl (0.2-1.0); Blood Urea Nitrogen 11.0 mg/dl (6-23); Calcium 8.9 mg/dl (8.6-10.3); Carbon Dioxide 28.0 mmol/L (21-32); Chloride 103.0 mmol/L (98-107); Creatinine Clr Calc Pharmacy 65.4 ml/min; Globulin 3.3 gm/dl (2.5-4.0); Glucose 111.0 mg/dl (70-99(Fasting)); Magnesium 1.5 mg/dl (1.7-2.4); Potassium 4.3 mmol/L (3.5-5.1); Sodium 139.0 mmol/L (136-145); Total Protein 7.1 gm/dl (6.0-8.3)
[2025-10-19 23:42] LABS: INR 1.1 (0.9-1.1); Prothrombin Time 11.9 Seconds (9.0-12.0)
[2025-10-19] MEDS: MAGNESIUM SULFATE / D5W 1 GM/100 ML BAG IV STA (23:51)
[2025-10-20 00:03] LABS: Chlamydia pneumoniae PCR Not Detected (NotDetected); Coronavirus 229E PCR Not Detected (NotDetected); Coronavirus CoV-2 (COVID19)PCR Not Detected (NotDetected); Coronavirus HKU1 PCR Not Detected (NotDetected); Coronavirus NL63 PCR Not Detected (NotDetected); Coronavirus OC43PCR Not Detected (NotDetected); Human Metapneumovirus PCR Not Detected (NotDetected); Influenza A (H3) PCR DETECTED (NotDetected); Parainfluenza Virus 1 PCR Not Detected (NotDetected); Parainfluenza Virus 2 PCR Not Detected (NotDetected); Parainfluenza Virus 3 PCR Not Detected (NotDetected); Parainfluenza Virus 4 PCR Not Detected (NotDetected); Respiratory Syncytial VirusPCR Not Detected (NotDetected); Rhinovirus/Enterovirus PCR Not Detected (NotDetected)
[2025-10-20 00:23] LABS: Base Excess VBG 4.0 mEq/L; HCO3 VBG 30 mmol/L; Oxygen Saturation VBG < 60.0 %; PCO2 VBG 48 mmHg (38-50); PO2 VBG 35 mmHg; pH VBG 7.40 (7.36-7.41)
[2025-10-20 01:05] LABS: Appearance Urine Clear (Clear); Bacteria Urine Automated None Seen (None Seen); Epithelial Cell Urine Auto 0-2 /hpf (0-2); Glucose Urine UA Negative (Negative); RBC Urine Automated 0-2 /hpf (0-2); WBC Urine Automated 0-5 /hpf (0-5)
[2025-10-20] MEDS: ALBUT/IPRATROP 3MG/0.5MG NEB 3 ML VIAL NEB STA ×2 (01:55→04:27)
[2025-10-20] MEDS: SODIUM CHLORIDE 0.9% 500 ML IV ONE ×2 (03:42→04:27)
--- NOTE | 2025-10-20 03:57 | CT Scan Report ---
Exam(s): CT C SPINE EXAM: CT Cervical Spine Without Intravenous Contrast CLINICAL HISTORY: Reason for exam: fall. TECHNIQUE: Axial computed tomography images of the cervical spine without intravenous contrast. CTDI is 38.03 mGy and DLP is 1078.44 mGy-cm. Automated exposure control was utilized for the study. A dose lowering technique was utilized adhering to the principles of ALARA. COMPARISON: Prior MRI of the cervical spine from October 03, 2025. FINDINGS: Vertebrae: There is a mild generalized curved to the right straightening normal cervical lordosis. There is incomplete segmentation of C6 and C7. No acute fracture. Discs/spinal canal/neural foramina: No acute findings. There is a critical spinal canal stenosis at C3-4. Soft tissues: Unremarkable. IMPRESSION: No evidence of acute cervical spine pathology. There is a critical spinal canal stenosis at C3-4. Recommend MRI of the cervical spine to evaluate for myelopathy. Electronically signed by: Chacha Mercado MD 10/20/25 03:55 AM
--- NOTE | 2025-10-20 04:02 | CT Scan Report ---
Exam(s): CT HEAD Without Contrast EXAM: CT Head Without Intravenous Contrast CLINICAL HISTORY: Reason for exam: ams, fall. TECHNIQUE: Axial computed tomography images of the head/brain without intravenous contrast. CTDI is 38.03 mGy and DLP is 1078.44 mGy-cm. Automated exposure control was utilized for the study. A dose lowering technique was utilized adhering to the principles of ALARA. COMPARISON: Prior brain MRI from October 02, 2025. FINDINGS: This study is limited secondary to motion artifact. Brain: Unremarkable. No hemorrhage. No significant white matter disease. No edema. Ventricles: Mild ventriculomegaly. Bones/joints: Remote left lamina papyracea fracture deformity. No acute fracture. Soft tissues: Unremarkable. Sinuses: Unremarkable as visualized. No acute sinusitis. Mastoid air cells: Unremarkable as visualized. No mastoid effusion. IMPRESSION: No evidence of acute intracranial pathology. Electronically signed by: Chacha Mercado MD 10/20/25 04:01 AM
--- NOTE | 2025-10-20 05:06 | XRay Report ---
Exam(s): XR CXR 1 VIEW EXAM: XR Chest, 1 View CLINICAL HISTORY: Reason for exam: cough. TECHNIQUE: Frontal view of the chest. COMPARISON: Prior chest x-ray from October 02, 2025. FINDINGS: Lungs: Moderate to heavy peribronchial thickening of the central bronchi. No consolidation. Pleural space: Unremarkable. No pneumothorax. Heart: Unremarkable. No cardiomegaly. Mediastinum: Unremarkable. Normal mediastinal contour. Bones/joints: Unremarkable. No acute fracture. IMPRESSION: Bronchitis, which may be of infectious or inflammatory etiologies. No consolidation or pleural effusion. Electronically signed by: Chacha Mercado MD 10/20/25 05:05 AM
--- NOTE | 2025-10-20 05:36 | History & Physical Report ---
Date of Service October 20, 2025 Assessment & Plan (1) Influenza A: (2) Bronchitis: (3) Acute exacerbation of chronic obstructive pulmonary disease (COPD): (4) Frequent falls: Plan The patient is a 70-year-old male with a past medical history including COPD, diabetes mellitus, intracranial aneurysms, Parkinson's, tremor, hyperlipidemia, seizure disorder, GERD, BPH and chronic pain syndrome. He presented to the emergency department after falling off a chair onto the floor at home, and was not able to get up. He has had a cough and shortness of breath since about 130 this afternoon, when this occurred. He reports his is with similar illness, and attributes his illness to her. Workup in the emergency department included a [employer] test positive for influenza A, magnesium 1.5, chest x-ray suggestive of bronchitis, CT head negative, CT cervical spine with no acute p roblem, but did find a critical stenosis at the C3-4 level. He was most recently mated to [facility] from 10/02-10/04/2025 with a syncopal near syncopal episode, orthostatic hypotension, autonomic dysfunction. Bronchitis/COPD exacerbation secondary to influenza A- Droplet precaution Tamiflu 75 mg p.o. twice daily with first dose now DuoNebs every 2 hours as needed Status post fall- CT head negative CT cervical spine without acute findings, which are critical stenosis at C3-C4 levels Hypertension- Continue amlodipine and losartan GERD- Continue pantoprazole and famotidine BPH- Continue tamsulosin Diabetes mellitus- Hold metformin Place on Accu-Cheks with NovoLog SSI Parkinson's/seizure disorder- Continue carbidopa levodopa, divalproex, doxepin, fluoxetine Orthostatic hypotension- Continue midodrine Hypothyroidism- Continue levothyroxine Hyperlipidemia- Continue atorvastatin History of Present Illness Primary Care Provider: Lj Randle MD The patient is a 70-year-old male with a past medical history including COPD, diabetes mellitus, intracranial aneurysms, Parkinson's, tremor, hyperlipidemia, seizure disorder, GERD, BPH and chronic pain syndrome. He presented to the emergency department after falling off a chair onto the floor at home, and was not able to get up. He has had a cough and shortness of breath since about 130 this afternoon, when this occurred. He reports his is with similar illness, and attributes his illness to her. Workup in the emergency department included a [employer] test positive for influenza A, magnesium 1.5, chest x-ray suggestive of bronchitis, CT head negative, CT cervical spine with no acute problem, but did find a critical stenosis at the C3-4 level. He was most recently mated to [facility] from 10/02-10/04/2025 with a syncopal near syncopal episode, orthostatic hypotension, autonomic dysfunction. Allergies Allergy/AdvReac Type Severity Reaction Status Date / Time lamotrigine [From Lamictal] Allergy Swelling Verified 10/02/25 13:44 of Lip/Tongue/Throat Home Medications Medication Instructions Recorded Confirmed Type MEDICAL MARIJUANA 0 dose PO UD 03/15/24 10/20/25 History aspirin 81 mg tablet,delayed 81 mg PO DAILY 03/15/24 10/20/25 History release atorvastatin 80 mg tablet 80 mg PO QAM 03/15/24 10/20/25 History blood-glucose meter 03/15/24 10/20/25 History famotidine 40 mg tablet 40 mg PO QPM 03/15/24 10/20/25 History fluoxetine 20 mg capsule 20 mg PO QAM 03/15/24 10/20/25 History lancets 30 gauge (Easy Touch 03/15/24 10/20/25 History Lancets) metformin 1,000 mg tablet 1,000 mg PO BID 03/15/24 10/20/25 History pantoprazole 40 mg tablet,delayed 40 mg PO QAM 03/15/24 10/20/25 History release doxepin 25 mg capsule 25 mg PO QAM 03/21/24 10/20/25 History doxepin 75 mg capsule 75 mg PO QPM 09/19/25 10/20/25 History losartan 25 mg tablet 25 mg PO QAM 09/19/25 10/20/25 History cholecalciferol (vitamin D3) 25 25 mcg PO QAM 10/02/25 10/20/25 History mcg (1,000 unit) capsule clopidogrel 75 mg tablet 75 mg PO QAM 10/02/25 10/20/25 History tamsulosin 0.4 mg capsule 0.4 mg PO QPM 10/02/25 10/20/25 History midodrine 2.5 mg tablet 2.5 mg PO BID@0800,1400 #60 tabs 10/04/25 10/20/25 Rx amlodipine 10 mg tablet 10 mg PO DAILY 10/20/25 10/20/25 History carbidopa 25 mg-levodopa 250 mg 2 tab PO TID 10/20/25 10/20/25 History tablet cyanocobalamin (vitamin B-12) 1,000 mcg PO Q OTHER DAY 10/20/25 10/20/25 History 1,000 mcg tablet divalproex 500 mg tablet,delayed 500 mg PO AMHS 10/20/25 10/20/25 History release levothyroxine 112 mcg tablet 112 mcg PO QAM 10/20/25 10/20/25 History Past Med/Surg History Problem List (Updated 10/20/25 @ 05:32 by Jacob Lin MD) Bronchitis Elevated lactic acid level (Acute) Acute exacerbation of chronic obstructive pulmonary disease (COPD) (Acute) Fall (Acute) Influenza A (Acute) Frequent falls (Acute) Near syncope (Acute) Hypotension (Acute) Parkinson disease (Acute) Heart murmur Tremor Medical History Prostate cancer Hx TIA/stroke w/o resid Multiple falls Epilepsy Depression with anxiety Chronic nonalcoholic liver disease Prediabetes Ambulatory dysfunction Moderate cognitive impairment Near syncope Intracranial aneurysm GERD (gastroesophageal reflux disease) Hypothyroidism HLD (hyperlipidemia) COPD (chronic obstructive pulmonary disease) Parkinson disease Surgical History History of carpal tunnel release of both wrists H/O thumb surgery History of cholecystectomy Family History Mother Stomach cancer Father Cancer Brother Cancer Daughter Ceckr-Pagzzuhja-Jaeyg syndrome Son Coronary heart disease Daughter Thoracic aortic aneurysm Pacemaker Social History (Updated 10/20/25 @ 04:54 by Sara Zapata DO) Smoking Status: Former smoker Tobacco Type: Cigarettes packs per day: 1.5; Hx Alcohol Use: Yes Alcohol type: beer Alcohol type Comment: quit ~2020 Hx Substance Use: Yes Last Used Substance: Hours (ago) Last Used Substance Other:: Pt reports daily use; has medical card Preferred Language: Portuguese Communication Ability: Effective Steel Roller Required: No Beliefs That Will Affect Care: None marital status: Current Living Situation: Spouse current occupational status: retired How many Children do You have: 4 Feels Safe at Home: Yes Assistive Devices: Cane and Walker Review of Systems Review of Systems: The patient denies chest pain, palpitations, lower extremity swelling, sore throat, fevers, chills, sweats, nausea, vomiting, diarrhea , constipation, abdominal pain, pelvic pain, blood in urine or stool, dysuria, urinary frequency or urgency, loss of consciousness, rash, abnormal bruising or bleeding, focal weakness, numbness or tingling in arms or legs, generalized arthralgias or myalgias, back or neck pain, or night sweats. The review of systems is otherwise negative other than for that already noted above, and at least 10 systems have been reviewed. Physical Exam Physical Exam: The patient is awake, alert and oriented 3, well developed and well nourished, normocephalic and atraumatic, lying in bed and in no acute distress. HEENT--PERRL, EOMI, mucous membranes and oropharynx dry. Neck--supple. No JVD. No bruits. Thyroid normal, trachea midline, no adenopathy. Heart--normal S1 and S2. No murmurs, rubs or gallops. Lungs--decreased breath sounds throughout. No respiratory distress, no accessory muscle use. Abdomen--normal bowel sounds and soft. Nontender. Nondistended. Morbidly obese Extremities--no cyanosis or clubbing. No edema. There are good distal pulses b/l. Dermatologic--normal skin turgor, normal color, no abnormal lymph nodes, no rash. Neurologic--cranial nerves II through XII grossly intact. Rheumatologic--normal range of motion. Psychiatric--normal affect. Results & Data Results & Data Vital Signs (Past 12 Hours) Vital Signs Temp Pulse Resp BP Pulse Ox O2 Del Method 10/20/25 05:00 110 H 22 169/83 H 95 Room Air 10/20/25 04:30 105 H 24 138/88 94 Room Air 10/20/25 04:03 104 H 24 95 Room Air 10/20/25 04:00 104 H 22 169/88 H 96 Room Air 10/20/25 03:30 102 H 20 149/66 H 94 Room Air 10/20/25 03:00 104 H 24 160/75 H 94 Room Air 10/20/25 02:45 106 H 10/20/25 02:30 106 H 22 165/86 H 93 Room Air 10/20/25 02:00 110 H 24 147/90 H 94 Room Air 10/20/25 01:30 106 H 25 H 163/89 H 93 Room Air 10/20/25 01:18 108 H 24 152/83 H 94 Room Air 10/20/25 01:15 106 H 24 152/83 H 94 Room Air 10/20/25 01:00 108 H 24 93 Room Air 10/20/25 00:30 108 H 26 H 161/88 H 92 Room Air 10/20/25 00:00 115 H 24 178/84 H 95 Room Air 10/19/25 23:33 110 H 24 94 Room Air 10/19/25 23:30 114 H 22 149/72 H 96 Room Air 10/19/25 23:18 112 H 22 160/89 H 94 Room Air 10/19/25 23:00 109 H 24 162/93 H 92 Room Air 10/19/25 22:46 37.8 C H 114 H 30 H 194/88 H 93 Room Air 10/19/25 22:45 114 H 22 94 Room Air 10/19/25 22:45 114 H Laboratory Results Laboratory Results WBC 6.53 K/ul (4.8-10.8) 10/19/25 22:45 RBC 3.62 M/uL (4.70-6.10) L 10/19/25 22:45 Hgb 10.7 g/dL (14.0-18.0) L 10/19/25 22:45 Hct 32.3 % (42.0-52.0) L 10/19/25 22:45 MCV 89.2 fL (80.0-100.0) 10/19/25 22:45 MCH 29.6 pg (25.0-34.0) 10/19/25 22:45 MCHC 33.1 g/dL (32.0-36.0) 10/19/25 22:45 RDW Std Deviation 47.5 fL (36.4-46.3) H 10/19/25 22:45 RDW Coeff of Teresa 14.6 % (11.5-14.5) H 10/19/25 22:45 Plt Count 217 K/uL (130-400) 10/19/25 22:45 MPV 9.9 fL (9.4-12.4) 10/19/25 22:45 Immature Gran % (Auto) 0.5 % 10/19/25 22:45 Neut % (Auto) 82.3 % 10/19/25 22:45 Lymph % (Auto) 4.4 % 10/19/25 22:45 [place] % (Auto) 12.1 % 10/19/25 22:45 Eos % (Auto) 0.5 % 10/19/25 22:45 Baso % (Auto) 0.2 % 10/19/25 22:45 Neut # (Auto) 5.38 K/uL (1.40-6.50) 10/19/25 22:45 Lymph # (Auto) 0.29 K/uL (1.20-3.40) L 10/19/25 22:45 [place] # (Auto) 0.79 K/uL (0.11-0.59) H 10/19/25 22:45 Eos # (Auto) 0.03 K/uL (0.00-0.50) 10/19/25 22:45 Baso # (Auto) 0.01 K/uL (0.00-0.20) 10/19/25 22:45 Immature Gran # (Auto) 0.03 K/uL (0.01-0.20) 10/19/25 22:45 PT 11.9 Seconds (9.0-12.0) 10/19/25 22:45 INR 1.1 (0.9-1.1) 10/19/25 22:45 VBG pH 7.40 (7.36-7.41) 10/19/25 23:45 VBG pCO2 48 mmHg (38-50) 10/19/25 23:45 VBG pO2 35 mmHg 10/19/25 23:45 VBG HCO3 30 mmol/L 10/19/25 23:45 VBG O2 Saturation < 60.0 % 10/19/25 23:45 VBG Base Excess 4.0 mEq/L 10/19/25 23:45 Sodium 139 mmol/L (136-145) 10/19/25 22:45 Potassium 4.3 mmol/L (3.5-5.1) 10/19/25 22:45 Chloride 103 mmol/L (98-107) 10/19/25 22:45 Carbon Dioxide 28 mmol/L (21-32) 10/19/25 22:45 Anion Gap 8 (3-11) 10/19/25 22:45 BUN 11 mg/dl (6-23) 10/19/25 22:45 Creatinine 1.11 mg/dl (0.6-1.4) 10/19/25 22:45 Est Cr Clr Drug Dosing 65.4 ml/min 10/19/25 22:45 eGFR 70.55 10/19/25 22:45 BUN/Creatinine Ratio 9.9 (10-20) L 10/19/25 22:45 Glucose 111 mg/dl (70-99(Fasting)) H 10/19/25 22:45 Lactate 4.1 mmol/L (0.4-2.0) H* 10/20/25 04:32 Calcium 8.9 mg/dl (8.6-10.3) 10/19/25 22:45 Magnesium 1.5 mg/dl (1.7-2.4) L 10/19/25 22:45 Total Bilirubin 0.4 mg/dl (0.2-1.0) 10/19/25 22:45 AST 9 U/L (13-39) L 10/19/25 22:45 ALT 3 U/L (7-52) L 10/19/25 22:45 Alkaline Phosphatase 37 U/L (34-104) 10/19/25 22:45 Troponin I High Sens 11.9 pg/ml (0-20) 10/19/25 22:45 Total Protein 7.1 gm/dl (6.0-8.3) 10/19/25 22:45 Albumin 3.8 gm/dl (3.4-5.0) 10/19/25 22:45 Globulin 3.3 gm/dl (2.5-4.0) 10/19/25 22:45 Albumin/Globulin Ratio 1.2 (0.9-2) 10/19/25 22:45 Procalcitonin 0.03 ng/ml (0-0.5) 10/19/25 22:45 Urine Color Yellow 10/20/25 Unknown Urine Appearance Clear (Clear) 10/20/25 Unknown Urine pH 7.0 (4.5-7.5) 10/20/25 Unknown Ur Specific [place] 1.015 (1.000-1.030) 10/20/25 Unknown Urine Protein 1+ (Negative) H 10/20/25 Unknown Urine Glucose (UA) Negative (Negative) 10/20/25 Unknown Urine Ketones Trace (Negative) H 10/20/25 Unknown Urine Blood Negative (Negative) 10/20/25 Unknown Urine Nitrite Negative (Negative) 10/20/25 Unknown Urine Bilirubin Negative (Negative) 10/20/25 Unknown Urine Urobilinogen Negative (Negative) 10/20/25 Unknown Ur Leukocyte Esterase Negative (Negative) 10/20/25 Unknown Urine WBC (Auto) 0-5 /hpf (0-5) 10/20/25 Unknown Urine RBC (Auto) 0-2 /hpf (0-2) 10/20/25 Unknown U Hyaline Cast (Auto) 6-10 /lpf (0-2) H 10/20/25 Unknown U Epithel Cells (Auto) 0-2 /hpf (0-2) 10/20/25 Unknown Urine Bacteria (Auto) None Seen (None Seen) 10/20/25 Unknown Hyaline Casts Present /lpf (None Presnt) A 10/20/25 Unknown Urine Comment 10/20/25 Unknown Adenovirus (PCR) Not Detected (NotDetected) 10/19/25 22:45 B. pertussis DNA (PCR) Not Detected (NotDetected) 10/19/25 22:45 B.parapertussis DNA PCR Not Detected (NotDetected) 10/19/25 22:45 C. pneumoniae DNA (PCR) Not Detected (NotDetected) 10/19/25 22:45 Coronavirus OC43 (PCR) Not Detected (NotDetected) 10/19/25 22:45 Coronavirus HKU1 (PCR) Not Detected (NotDetected) 10/19/25 22:45 Coronavirus 229E (PCR) Not Detected (NotDetected) 10/19/25 22:45 SARS-CoV-2 (PCR) Not Detected (NotDetected) 10/19/25 22:45 Coronavirus NL63 (PCR) Not Detected (NotDetected) 10/19/25 22:45 Human Metapneumovir PCR Not Detected (NotDetected) 10/19/25 22:45 Influenza A (H3) PCR DETECTED (NotDetected) A 10/19/25 22:45 Influenza Type B (PCR) Not Detected (NotDetected) 10/19/25 22:45 M. pneumoniae (PCR) Not Detected (NotDetected) 10/19/25 22:45 Parainfluenza 1 (PCR) Not Detected (NotDetected) 10/19/25 22:45 Parainfluenza 2 (PCR) Not Detected (NotDetected) 10/19/25 22:45 Parainfluenza 3 (PCR) Not Detected (NotDetected) 10/19/25 22:45 Parainfluenza 4 (PCR) Not Detected (NotDetected) 10/19/25 22:45 RSV (PCR) Not Detected (NotDetected) 10/19/25 22:45 Entero/Rhino (PCR) Not Detected (NotDetected) 10/19/25 22:[address] 10/19/25 22:54 Exam(s): CT HEAD Without Contrast EXAM: CT Head Without Intravenous Contrast CLINICAL HISTORY: Reason for exam: ams, fall. TECHNIQUE: Axial computed tomography images of the head/brain without intravenous contrast. CTDI is 38.03 mGy and DLP is 1078.44 mGy-cm. Automated exposure control was utilized for the study. A dose lowering technique was utilized adhering to the principles of ALARA. COMPARISON: Prior brain MRI from October 02, 2025. FINDINGS: This study is limited secondary to motion artifact. Brain: Unremarkable. No hemorrhage. No significant white matter disease. No edema. Ventricles: Mild ventriculomegaly. Bones/joints: Remote left lamina papyracea fracture deformity. No acute fracture. Soft tissues: Unremarkable. Sinuses: Unremarkable as visualized. No acute sinusitis. Mastoid air cells: Unremarkable as visualized. No mastoid effusion. IMPRESSION: No evidence of acute intracranial pathology. Electronically signed by: Chacha Mercado MD 10/20/25 04:[address] 10/19/25 22:55 Exam(s): CT C SPINE EXAM: CT Cervical Spine Without Intravenous Contrast CLINICAL HISTORY: Reason for exam: fall. TECHNIQUE: Axial computed tomography images of the cervical spine without intravenous contrast. CTDI is 38.03 mGy and DLP is 1078.44 mGy-cm. Automated exposure control was utilized for the study. A dose lowering technique was utilized adhering to the principles of ALARA. COMPARISON: Prior MRI of the cervical spine from October 03, 2025. FINDINGS: Vertebrae: There is a mild generalized curved to the right straightening normal cervical lordosis. There is incomplete segmentation of C6 and C7. No acute fracture. Discs/spinal canal/neural foramina: No acute findings. There is a critical spinal canal stenosis at C3-4. Soft tissues: Unremarkable. IMPRESSION: No evidence of acute cervical spine pathology. There is a critical spinal canal stenosis at C3-4. Recommend MRI of the cervical spine to evaluate for myelopathy. Electronically signed by: Chacha Mercado MD 10/20/25 03:55 AM Chest X-Ray 10/19/25 22:55 Exam(s): XR CXR 1 VIEW EXAM: XR Chest, 1 View CLINICAL HISTORY: Reason for exam: cough. TECHNIQUE: Frontal view of the chest. COMPARISON: Prior chest x-ray from October 02, 2025. FINDINGS: Lungs: Moderate to heavy peribronchial thickening of the central bronchi. No consolidation. Pleural space: Unremarkable. No pneumothorax. Heart: Unremarkable. No cardiomegaly. Mediastinum: Unremarkable. Normal mediastinal contour. Bones/joints: Unremarkable. No acute fracture. IMPRESSION: Bronchitis, which may be of infectious or inflammatory etiologies. No consolidation or pleural effusion. Electronically signed by: Chacha Mercado MD 10/20/25 05:05 AM Code Status & VTE Plan Code Status Full code VTE Prophylaxis Plan VTE Prophylaxis will be ordered: Yes PG Care Time/CCT Total # of Minutes Spent Total Time Spent with Patient: Total time spent is greater than 50% in coordination of care (as documented) at patient's floor/unit and/or counseling patient: Coding Level of Care Code 00350 INT INP/OBS CARE 3/75MIN Diagnoses Influenza A J10.1 Bronchitis J40 Acute exacerbation of chronic obstructive pulmonary disease (COPD) J44.1 Frequent falls R29.6
[2025-10-20] MEDS: OSELTAMIVIR PHOSPHATE 75 MG CAP PO STA (05:47)
[2025-10-20] MEDS: MAGNESIUM SULFATE / D5W 1 GM/100 ML BAG IV ONE (05:49)
[2025-10-20] MEDS: ALBUT/IPRATROP 3MG/0.5MG NEB 3 ML VIAL NEB PRN (08:12)
--- NOTE | 2025-10-20 08:24 | Electrocardiogram Report ---
Test Reason : Blood Pressure : */* mmHG Vent. Rate : 111 BPM Atrial Rate : 111 BPM P-R Int : 174 ms QRS Dur : 96 ms QT Int : 350 ms P-R-T Axes : 61 -11 66 degrees QTcB Int : 476 ms Sinus tachycardia Possible Left atrial enlargement Incomplete right bundle branch block Borderline ECG When compared with ECG of 02-Oct-2025 11:23, No significant change was found Confirmed by Kirill Díaz ([id number]) on 10/20/2025 8:24:00 AM Referred By: REFERRED SELF Confirmed By: Kirill Díaz
[2025-10-20] MEDS ORDERED: DEXTROSE 50% 50 ML SYRINGE IV PRN (09:28)
[2025-10-20] MEDS ORDERED: GLUCOSE 40% GEL 15 GM TUBE PO PRN (09:28)
[2025-10-20] MEDS ORDERED: CARBOHYDRATES FOR HYPOGLYCEMIA PO PRN (09:28)
[2025-10-20] MEDS ORDERED: GLUCAGON FOR INJ 1 MG VIAL SQ PRN (09:28)
[2025-10-20] MEDS ORDERED: GLUCOSE 10 TAB/TUBE PO PRN (09:28)
[2025-10-20] MEDS: ACETAMINOPHEN 325 MG TAB PO PRN (10:31)
[2025-10-20] MEDS: DOXEPIN HCL 25 MG CAPSULE PO SCH (10:54)
[2025-10-20] MEDS: CHOLECALCIFEROL 25 MCG (1000 UNITS) TAB PO SCH (10:54)
[2025-10-20] MEDS: CARBIDOPA/LEVODOPA 25-250 1 EA TAB PO SCH (10:55)
[2025-10-20] MEDS: ASPIRIN 81 MG ECTAB PO SCH (10:55)
[2025-10-20] MEDS: CLOPIDOGREL BISULFATE 75 MG TAB PO SCH (10:55)
[2025-10-20] MEDS: DIVALPROEX DELAY RELEASE 500 MG TAB PO SCH (10:56)
[2025-10-20] MEDS: LOSARTAN POTASSIUM 25 MG TAB PO SCH (10:56)
[2025-10-20] MEDS: LEVOTHYROXINE SODIUM 112 MCG TABLET PO SCH (10:56)
[2025-10-20] MEDS: INSULIN ASPART PER UNIT CHARGE SC SCH (11:01)
[2025-10-20] MEDS: ATORVASTATIN 40 MG TAB PO SCH (11:35)
[2025-10-20] MEDS: MIDODRINE HCL 2.5 MG TAB PO SCH (11:35)
--- NOTE | 2025-10-20 18:29 | Progress Note ---
Date of Service October 20, 2025 Assessment & Plan (1) Influenza A: (2) Bronchitis: (3) Acute exacerbation of chronic obstructive pulmonary disease (COPD): (4) Frequent falls: Plan The patient is a 70-year-old male with a past medical history including COPD, diabetes mellitus, intracranial aneurysms, Parkinson's, tremor, hyperlipidemia, seizure disorder, GERD, BPH and chronic pain syndrome. He presented to the emergency department after falling off a chair onto the floor at home, and was not able to get up. He has had a cough and shortness of breath since about 130 this afternoon, when this occurred. He reports his is with similar illness, and attributes his illness to her. Workup in the emergency department included a Bio[employer] test positive for influenza A, magnesium 1.5, chest x-ray suggestive of bronchitis, CT head negative, CT cervical spine with no acute problem, but did find a critical stenosis at the C3-4 level. He was most recently mated to [facility] from 10/02-10/04/2025 with a syncopal near syncopal episode, orthostatic hypotension, autonomic dysfunction. 10/20 - cont tamiflu and nebs - consider steroids, though he feels better; will defer for now - d/c in AM Bronchitis/COPD exacerbation secondary to influenza A- Droplet precaution Tamiflu 75 mg p.o. twice daily with first dose now DuoNebs every 2 hours as needed Status post fall- CT head negative CT cervical spine without acute findings, which are critical stenosis at C3-C4 levels Hypertension- Continue amlodipine and losartan GERD- Continue pantoprazole and famotidine BPH- Continue tamsulosin Diabetes mellitus- Hold metformin Place on Accu-Cheks with NovoLog [facility] Parkinson's/seizure disorder- Continue carbidopa levodopa, divalproex, doxepin, fluoxetine Orthostatic hypotension- Continue midodrine Hypothyroidism- Continue levothyroxine Hyperlipidemia- Continue atorvastatin Admission and Anticipated Discharge Date Admission Date: October 20, 2025 Subjective Patient states he feels better. still would like nebs and would like to stay overnight explained that if he feels better he can be discharged in AM and he's agreeable Review of Systems Review of Systems: Constitutional: No Weight Change, No Fever, No Chills, No Night Sweats, No Fatigue, No Malaise ENT/Mouth: No Hearing Changes, No Ear Pain, No Nasal Congestion, No Sinus Pain, No Hoarseness, No sore throat, No Rhinorrhea, No Swallowing Difficulty Eyes: No Eye Pain, No Swelling, No Redness, No Foreign Body, No Discharge, No Vision Changes Cardiovascular: No Chest Pain, No SOB, No PND, No Dyspnea on Exertion, No Orthopnea, No Claudication, No Edema, No Palpitations Respiratory: No Cough, No Sputum, No Wheezing, No Smoke Exposure, No Dyspnea Gastrointestinal: No Nausea, No Vomiting, No Diarrhea, No Constipation, No Pain, No Heartburn, No Anorexia, No Dysphagia, No Hematochezia, No Melena, No Flatulence, No Jaundice Genitourinary: No Dysmenorrhea, No DUB, No Dyspareunia, No Dysuria, No Urinary Frequency, No Hematuria, No Urinary Incontinence, No Urgency, No Flank Pain, No Urinary Flow Changes, No Hesitancy Musculoskeletal: No Arthralgias, No Myalgias, No Joint Swelling, No Joint Stiffness, No Back Pain, No Neck Pain, No Injury History Skin: No Skin Lesions, No Pruritis, No Hair Changes, No Breast/Skin Changes, No Nipple Discharge Neuro: No Weakness, No Numbness, No Paresthesias, No Loss of Consciousness, No Syncope, No Dizziness, No Headache, No Coordination Changes, No Recent Falls Psych: No Anxiety/Panic, No Depression, No Insomnia, No Personality Changes, No Delusions, No Rumination, No SI/HI/AH/VH, No Social Issues, No Memory Changes, No Violence/Abuse Hx., No Eating Concerns Heme/Lymph: No Bruising, No Bleeding, No Transfusions History, No Lymphadenopathy Endocrine: No Polyuria, No Polydipsia, No Temperature Intolerance Physical Exam Physical Exam: VITALS: Reviewed. WEIGHT/BMI reviewed. GEN: Healthy appearing, well-developed, NAD. PSYCH: Good Judgment. AOx3. Normal memory, mood, and affect. HEENT -Head: NC/AT; -Eyes: PERRL, EOMI. No discharge or redn ess; -Ears: External ears are normal. Normal TMs. -Nose: Normal nares. -Mouth and throat: MMM. Normal gums, muc sherie, palate,. Good dentition. NECK: Supple, with no masses. CV: RRR, no m/r/g. LUNGS: CTAB, no w/r/c. ABD: Soft, NT/ND, NBS, no masses or organomegaly. : N/A SKIN: Warm, well perfused. No skin rashes or abnormal lesions. MSK: No deformities, Normal gait. EXT: No clubbing, cyanosis, or edema. NEURO: Ambulating with no limitations. Normal muscle strength and tone. No focal deficits. Results & Data Vital Signs (Past 12 Hours) Vital Signs Temp Pulse Pulse Resp BP BP Pulse Ox 10/20/25 18:12 99 H 20 92 10/20/25 17:57 37.4 C 95 H 20 119/70 92 10/20/25 17:33 102 H 10/20/25 16:03 37.4 C 95 H 18 100/65 91 10/20/25 14:02 37.8 C H 133/56 L 10/20/25 12:05 37.0 C 10/20/25 09:30 10/20/25 09:30 38.4 C H 112 H 22 152/78 H 95 10/20/25 08:27 106 H 20 163/85 H 94 10/20/25 06:57 105 H 20 175/80 H 93 10/20/25 06:39 107 H O2 Del Method 10/20/25 18:12 Room Air 10/20/25 17:57 Room Air 10/20/25 17:33 10/20/25 16:03 Room Air 10/20/25 14:02 10/20/25 12:05 10/20/25 09:30 Room Air 10/20/25 09:30 Room Air 10/20/25 08:27 Room Air 10/20/25 06:57 Room Air 10/20/25 06:39 PG Care Time/CCT Total # of Minutes Spent Total Time Spent with Patient: Total time spent is greater than 50% in coordination of care (as documented) at patient's floor/unit and/or counseling patient: Coding Level of Care Code 41300 SUB INP/OBS CARE 2/35MIN Diagnoses Influenza A J10.1 Bronchitis J40 Acute exacerbation of chronic obstructive pulmonary disease (COPD) J44.1 Frequent falls R29.6
[2025-10-20] MEDS: DOXEPIN HCL 75 MG CAPSULE PO SCH (21:32)
[2025-10-20] MEDS: FAMOTIDINE 40 MG TABLET PO SCH (21:33)
[2025-10-20] MEDS: TAMSULOSIN HCL 0.4 MG CAP PO SCH (21:34)
[2025-10-20] MEDS: OSELTAMIVIR PHOSPHATE 75 MG CAP PO SCH (21:34)
[2025-10-21 06:43] LABS: Hematocrit (blood only) 27.9 % (42.0-52.0); Hemoglobin 9.0 g/dL (14.0-18.0); Immature Granulocytes # (auto) 0.01 K/uL (0.01-0.20); Immature Granulocytes % (auto) 0.2 %; Mean Corpuscular Hemoglobin 29.1 pg (25.0-34.0); Mean Corpuscular Volume 90.3 fL (80.0-100.0); Platelet Count 187 K/uL (130-400); RDW Standard Deviation 50.7 fL (36.4-46.3); Red Blood Count 3.09 M/uL (4.70-6.10); White Blood Count 5.40 K/ul (4.8-10.8)
[2025-10-21 07:18] LABS: Anion Gap 7 (3-11); Blood Urea Nitrogen 9 mg/dl (6-23); Calcium 7.9 mg/dl (8.6-10.3); Carbon Dioxide 25 mmol/L (21-32); Chloride 108 mmol/L (98-107); Creatinine Clr Calc Pharmacy 79.8 ml/min; Glucose 99 mg/dl (70-99(Fasting)); Potassium 4.6 mmol/L (3.5-5.1); Sodium 140 mmol/L (136-145)
[2025-10-21 07:22] LABS: Alanine Aminotransferase < 3 U/L (7-52); Albumin Globulin Ratio 1.4 (0.9-2); Albumin Level 3.4 gm/dl (3.4-5.0); Alkaline Phosphatase 28 U/L (34-104); Bilirubin,Total 0.4 mg/dl (0.2-1.0); Globulin 2.4 gm/dl (2.5-4.0); Magnesium 1.8 mg/dl (1.7-2.4); Total Protein 5.8 gm/dl (6.0-8.3)
[2025-10-21 07:40] LABS: Hemoglobin A1C 6.2 % (4.5-5.6)
[2025-10-21 08:19] VITALS: BP 146/84; TEMP 98.6
[2025-10-21] MEDS: CYANOCOBALAMIN (B-12) 500 MCG TABLET PO SCH (08:25)
[2025-10-21 09:09] VITALS: RESP 16; O2SAT 94
[2025-10-21] MEDS: LOSARTAN POTASSIUM 50 MG TAB PO SCH (09:21)
--- NOTE | 2025-10-21 11:14 | Discharge Summary ---
Discharge Summary Date of Service October 21, 2025 Principal Dx & Hospital Course #1 = Principal Diagnosis (1) Influenza A: (2) Bronchitis: (3) Acute exacerbation of chronic obstructive pulmonary disease (COPD): (4) Frequent falls: Plan The patient is a 70-year-old male with a past medical history including COPD, diabetes mellitus, intracranial aneurysms, Parkinson's, tremor, hyperlipidemia, seizure disorder, GERD, BPH and chronic pain syndrome. He presented to the emergency department after falling off a chair onto the floor at home, and was not able to get up. He has had a cough and shortness of breath since about 130 this afternoon, when this occurred. He reports his is with similar illness, and attributes his illness to her. Workup in the emergency department included a BioFire test positive for influenza A, magnesium 1.5, chest x-ray suggestive of bronchitis, CT head negative, CT cervical spine with no acute problem, but did find a critical stenosis at the C3-4 level. He was most recently mated to [facility] from 10/02-10/04/2025 with a syncopal near syncopal episode, orthostatic hypotension, autonomic dysfunction. 10/20 - cont tamiflu and nebs - consider steroids, though he feels better; will defer for now - d/c in AM 10/21 - patient is doing better; still has some congestion and cough - will d/c home with tamiflu; can use OTC cough medications - noted to have lactic acidosis on 10/20; this is likely due to the neb treatments; fluids were given on 10/20 but not likely dehydration/tissue hypoxia/sepsis; no leukocytosis Bronchitis/COPD exacerbation secondary to influenza A- Droplet precaution Tamiflu 75 mg p.o. twice daily with first dose now DuoNebs every 2 hours as needed Status post fall- CT head negative CT cervical spine without acute findings, which are critical stenosis at C3-C4 levels Hypertension- Continue amlodipine and losartan GERD- Continue pantoprazole and famotidine BPH- Continue tamsulosin Diabetes mellitus- Hold metformin Place on Accu-Cheks with NovoLog [facility] Parkinson's/seizure disorder- Continue carbidopa levodopa, divalproex, doxepin, fluoxetine Orthostatic hypotension- Continue midodrine Hypothyroidism- Continue levothyroxine Hyperlipidemia- Continue atorvastatin Admission HPI Per Admitting Provider The patient is a 70-year-old male with a past medical history including COPD, diabetes mellitus, intracranial aneurysms, Parkinson's, tremor, hyperlipidemia, seizure disorder, GERD, BPH and chronic pain syndrome. He presented to the emergency department after falling off a chair onto the floor at home, and was not able to get up. He has had a cough and shortness of breath since about 130 this afternoon, when this occurred. He reports his is with similar illness, and attributes his illness to her. Workup in the emergency department included a BioFire test positive for influenza A, magnesium 1.5, chest x-ray suggestive of bronchitis, CT head negative, CT cervical spine with no acute problem, but did find a critical stenosis at the C3-4 level. He was most recently mated to [facility] from 10/02-10/04/2025 with a syncopal near synco pal episode, orthostatic hypotension, autonomic dysfunction. Discharge Exam VITALS: Reviewed. WEIGHT/BMI reviewed. GEN: Healthy appearing, well-developed, NAD. PSYCH: Good Judgment. AOx3. Normal memory, mood, and affect. HEENT -Head: NC/AT; -Eyes: PERRL, EOMI. No discharge or redness; -Ears: External ears are normal. Normal TMs. -Nose: Normal nares. -Mouth and throat: MMM. Normal gums, mucosa, palate,. Good dentition. NECK: Supple, with no masses. CV: RRR, no m/r/g. LUNGS: CTAB, no w/r/c. ABD: Soft, NT/ND, NBS, no masses or organomegaly. : N/A SKIN: Warm, well perfused. No skin rashes or abnormal lesions. MSK: No deformities, Normal gait. EXT: No clubbing, cyanosis, or edema. NEURO: Ambulating with no limitations. Normal muscle strength and tone. No focal deficits. Discharge Plan Discharge Items Patient Disposition: Home - Self-Care Reason For Visit: INFLUENZA A BRONCHITIS, URI Discharge Diagnosis: Influenza A Bronchitis Condition on Discharge: Fair Activity: Resume your previous activity Non-emergency contact: Primary Care Provider Call non-emergency contact if: you have any medication questions Follow-up/Referrals: Lj Randle MD [Primary Care Provider] - Diet: Heart Healthy Addtl Attending Provider Instructions: Follow-up with your primary care physician Pending Studies at Discharge: No Stand-Alone Forms: My [facility], Smoking Cessation Medications and DC Order Prescriptions: New losartan 50 mg Tablet 50 mg PO QAM 30 Days Qty: 30 0RF oseltamivir [Tamiflu] 75 mg Capsule 75 mg PO BID 3 Days Qty: 6 0RF Continued pantoprazole 40 mg tablet,delayed release (DR/EC) 40 mg PO QAM famotidine 40 mg tablet 40 mg PO QPM fluoxetine 20 mg capsule 20 mg PO QAM metformin 1,000 mg tablet 1,000 mg PO BID aspirin 81 mg tablet,delayed release (DR/EC) 81 mg PO DAILY atorvastatin 80 mg tablet 80 mg PO QAM doxepin 25 mg capsule 25 mg PO QAM clopidogrel 75 mg tablet 75 mg PO QAM tamsulosin 0.4 mg capsule 0.4 mg PO QPM cholecalciferol (vitamin D3) 25 mcg (1,000 unit) capsule 25 mcg PO QAM midodrine 2.5 mg Tablet 2.5 mg PO BID@0800,1400 Qty: 60 0RF carbidopa-levodopa 25-250 mg tablet 2 tab PO TID cyanocobalamin (vitamin B-12) 1,000 mcg tablet 1,000 mcg PO Q OTHER DAY amlodipine 10 mg tablet 10 mg PO DAILY divalproex 500 mg tablet,delayed release (DR/EC) 500 mg PO [facility] levothyroxine 112 mcg tablet 112 mcg PO QAM doxepin 75 mg capsule 75 mg PO QPM Discontinued (DME) lancets [Easy Touch Lancets] 30 gauge misc See Rx Instructions .Route Rx Instructions: As directed (DME) blood-glucose meter Kit See Rx Instructions .Route Rx Instructions: As directed [facility] 0 dose PO UD Patient Comments: unable to verify losartan 25 mg tablet 25 mg PO QAM Hold Instructions: Provider's Order Discharge Orders: Discharge Order (Routine); Ordered 10/21/25 Ordered By: Pam Pineda/Other Patient Handouts: COPD Using Inhalers, Managing Type 2 Diabetes Admission Data Admit Date/Time: 10/20/25 05:25 Attending Provider: Pam Acosta Admit Provider: Jacob Lin Primary Care Provider: Lj Randle Other Providers: Jacob Lin Hospital Stay Data Consultations 10/20/25 05:05 ED Decision to Admit Stat Diagnostic Imagining Performed 10/19/25 22:54 CT head/brain wo con Stat 10/19/25 22:55 CT cervical spine wo con Stat Pending Results Patient Have Any Pending Studies at Discharge: No Discharge Instructions Given to Patient (Per Discharging Provider) Follow-up with your primary care physician Home Health Attestation I certify that this patient is under my care and that I, or a physicians senior it assistant working with me, had a face to-face encounter that meets the home health [id number] encounter requirements with this patient. The encounter with the patient was in whole, or in part, for the following medical condition, which is the primary reason for home health care (list medical condition): I certify that, based on my findings, the following services are medically necessary home health services: My clinical findings support the need for the above services because: Further, I certify that my clinical findings support that this patient is homebound (i.e. absences from home require considerable and taxing effort and are for medical reasons or advent services or infrequently or of short duration when for other reasons) because: Certification for Home Health Services: Based on the above findings, I certify that this patient is confined to the home and needs intermittent senior living care, physical therapy and/or speech therapy or continues to need occupational therapy. The patient is under my care, and I have initiated the establishment of the plan of care. This patient will be followed by a physician who will periodically review the plan of care. Total Time Total Time Spent Total Time Spent (In Minutes): 35 Coding Level of Care Code 38099 INP/OBS DISCH >30 MIN Diagnoses Influenza A J10.1 Bronchitis J40 Acute exacerbation of chronic obstructive pulmonary disease (COPD) J44.1 Frequent falls R29.6 Time Spent (min) 35
[2025-10-21 12:51] VITALS: PULSE 90
== END 2025-10-21 13:26 | disposition home or self-care (01) | DRG 194 ==
LOC: SUATTDRO → ED 22:38 → SUATTDRO 10-20 05:25 → INTOOBSV 10-20 05:25 → 2E 10-20 05:25

== ENCOUNTER 2025-10-28 14:41 | Inpatient (IN) ==
--- NOTE | 2025-10-28 14:54 | Emergency Department Note ---
Impression & Plan Acute hypoxic respiratory failure, Parkinson disease, Near syncope, PNA (pneumonia), Chronic anemia ED Provider Note NAME: AMISHA CALLAWAY AGE: 70 SEX: M : 1955 ARRIVES VIA: Ambulance INFORMANT: Patient, EMS ED PROVIDER(S): Jeramie Leon DO CHIEF COMPLAINT: HPI: This is a 70-year-old male with the PMHx of Parkinson's disease, resting tremors and frequent falls, hyperlipidemia, DM2, GERD and BPH presenting to [facility] for further evaluation of near syncope. Patient is accompanied by EMS who provide additional history. EMS states they were called for near syncope but the patient has more complaints of cough, congestion and shortness of breath. Patient states he was recently admitted to the hospital for influenza. He states his symptoms have continued to worsen. He denies a history of asthma or COPD. Patient states that he intermittently has these episodes where he feels he is going to pass out. Patient does not lose full consciousness. There is no witnessed seizure-like activity. EMS states he remained hemodynamically stable besides significant hypoxia. He required anywhere from 2 to 4 L of low flow nasal cannula with EMS. Patient states that he usually gets a sharp pain in his neck prior to feeling that he is going to pass out. They deny fever or chills. Denies chest pain or palpitations. They deny abdominal pain, nausea and vomiting. No urinary complaints. No recent changes in bowel movements. Patient denies recent changes in medications or OTC supplements. Patient offers no other complaints, today. ADDITIONAL HISTORY OBTAINED: Per HPI Chronic Medical/Social Conditions Affecting Care: Per HPI PAST MEDICAL HISTORY: See Below PAST SURGICAL HISTORY: See Below FAMILY HISTORY: See Below SOCIAL HISTORY: See Below HOME MEDICATIONS: See Below ALLERGIES: See Below VITALS: See Below PHYSICAL EXAMINATION: GENERAL: Sitting up in bed, alert, well appearing, well nourished, no distress, non-toxic EYE EXAM: normal conjunctiva. PERRL and EOM's grossly intact. OROPHARYNX: no exudate, no erythema, lips, buccal mucosa, and tongue normal and mucous membranes are moist NECK: supple, no nuchal rigidity, no adenopathy, non-tender LUNGS: Tachypnea. Diffuse wheezing present. Normal chest wall mechanics HEART: no murmurs, regular rate, regular rhythm ABDOMEN: abdomen soft, non-tender, no masses, no rebound or guarding. BACK: Back is symmetrical on inspection and there is no deformity, no midline tenderness, no CVA tenderness. SKIN: no rashes and no bruising UPPER EXTREMITIES: upper extremities are grossly normal. LOWER EXTREMITIES: No pitting edema. NEURO EXAM: Normal sensorium, GCS 15, normal speech, no gross weakness of arms, no gross weakness of legs. MEDICAL DECISION MAKING: Differential diagnoses includes but not limited to ACS, unstable angina, dysrhythmia, PNA, hypervolemia/pulmonary edema, CHF exacerbation, COPD exacerbation, PE, pneumothorax, pericardial effusion, cardiac tamponade, anxiety/psychogenic, viral URI In summary, this is a 70 year old male who presented with near syncope and dyspnea. Differential as above. Nursing notes and pertinent past medical records reviewed. Vital signs reviewed and the patient is Borderline hypotensive but otherwise afebrile and hemodynamically stable. Given the patient's borderline hypotension as well as a heart rate in the 90s, he does meet SIRS criteria with recent infection including influenza, I would be concerned for sepsis. Will obtain sepsis workup. History and presentation revealed patient recently admitted for influenza A and now with worsening shortness of breath, productive cough and congestion. Suspect possible pneumonia or ongoing viral illness. He is acutely hypoxic and requiring low-flow nasal cannula at this time. Physical examination revealed as above. As a result of my initial evaluation, IV access was established and the patient was placed on CCRM. Therapeutics ordered include IVFR, Duoneb and Tylenol. The patient's vital signs and symptoms of presyncope could be very much related to dysautonomia in the setting of his Parkinson's disease as well. Do not feel that this is significantly related to his presentation today and favor that his presentation is more related to acute illness that is likely viral or pneumonia. Diagnostics interpreted by me include EKG and cardiac monitoring as listed below: -Cardiac Monitoring: An order was placed for continuous cardiac monitoring. The monitor shows a rate of 60-90s with regular rhythm. -ECG: Normal sinus rhythm at a ventricular rate of [address] segment changes to suggest STEMI. Intervals are within normal limits. Patient completed laboratory studies and imaging. Results independently interpreted by me are stable anemia. No significant leukocytosis. Patient has a minimal acidosis with no CO2 retention. Normal kidney function and electrolytes. Normal LFTs. Lactate is within normal limits. LFTs are normal. Procalcitonin is normal. Negative viral swab chest x-ray was independently interpreted by me as possible developing right lower lobe infiltrate and will treat the patient as pneumonia. Clinically he does have pneumonia. Suspect he could have an underlying COPD as well. Patient was managed with ceftriaxone and doxycycline. The patient was managed with further DuoNeb with some improvement. Given the patient's Parkinson's disease and worsening since recent admission, we will plan to admit the patient for community-acquired pneumonia complicated by acute hypoxic respiratory failure. Ultimately, the decision was made to admit the patient for acute hypoxic respiratory failure secondary to pneumonia/viral URI. I discussed the case with the hospitalist service via telephone/TigerText and they are agreeable to admit the patient to their services by Dr. Box. Based on the above, including the patient's age, coexisting illnesses, labs, imaging, and exam findings the decision to treat as an inpatient. I discussed the patient with the hospitalist team who recommended admission to their services. They received the medications, treatments, interventions indicated above and their condition remained guarded. I discussed my findings with the patient and their family and they understand and agree with the treatment plan. All patient / family questions were answered to their satisfaction. Consults/Care Managements Discussions: Per MDM ER treatment provided: See above Procedures:none Critical Care: I have personally spent 37 minutes of critical care time in direct management of this patient. This includes bedside care, interpretation of diagnostic studies, and testing, discussion with consultants, patient, and family members, and other require inpatient management activities. This 37 minutes is in excess of all separately billable procedures. The chart was completed utilizing [employer] Speech voice recognition software. Grammatical errors, random word insertions, pronoun errors, and incomplete sentences are an occasional consequence of this system due to software limitations, ambient noise, and hardware issues. Any formal questions or concerns about the content, text, or information contained within the body of this dictation should be directly addressed to the physician for clarification. Past Med/Surg History Problem List (Updated 10/28/25 @ 23:46 by Jeramie Leon DO) Chronic anemia (Acute) Acute hypoxic respiratory failure (Acute) Diabetes PNA (pneumonia) (Acute) Bronchitis Elevated lactic acid level (Acute) Acute exacerbation of chronic obstructive pulmonary disease (COPD) (Acute) Fall (Acute) Influenza A (Acute) Frequent falls (Acute) Near syncope (Acute) Hypotension (Acute) Parkinson disease (Acute) Heart murmur Tremor Medical History Prostate cancer Hx TIA/stroke w/o resid Multiple falls Epilepsy Depression with anxiety Chronic nonalcoholic liver disease Prediabetes Ambulatory dysfunction Moderate cognitive impairment Near syncope Intracranial aneurysm GERD (gastroesophageal reflux disease) Hypothyroidism HLD (hyperlipidemia) COPD (chronic obstructive pulmonary disease) Parkinson disease Surgical History History of carpal tunnel release of both wrists H/O thumb surgery History of cholecystectomy Family History Mother Stomach cancer Father Cancer Brother Cancer Daughter Zglpn-Quwugsech-Vffot syndrome Son Coronary heart disease Daughter Thoracic aortic aneurysm Pacemaker Social History (Updated 10/20/25 @ 04:54 by Sara Zapata DO) Smoking Status: Current every day smoker Tobacco Type: Cigarettes packs per day: 1.5; Second Hand Exposure: Yes; Do You Dip or Chew Tobacco: No; Hx Alcohol Use: No Hx Substance Use: Yes Last Used Substance: Days (ago) Last Used Substance Other:: Pt reports daily use; has medical card Preferred Language: Italian Communication Ability: Effective Gemologist Required: No Beliefs That Will Affect Care: None marital status: Current Living Situation: Spouse current occupational status: retired How many Children do You have: 4 Feels Safe at Home: Yes Assistive Devices: Cane, Glasses and Walker Allergies Allergies Allergy/AdvReac Type Severity Reaction Status Date / Time lamotrigine [From Lamictal] Allergy Severe Swelling Verified 10/28/25 16:49 of Lip/Tongue/Throat nickel Allergy Unknown Unknown Verified 10/28/25 16:49 Home Meds Home Medications Medication Instructions Recorded Confirmed aspirin 81 mg tablet,delayed 81 mg PO DAILY 03/15/24 10/28/25 release atorvastatin 80 mg tablet 80 mg PO QAM 03/15/24 10/28/25 famotidine 40 mg tablet 40 mg PO QPM 03/15/24 10/28/25 fluoxetine 20 mg capsule 20 mg PO QAM 03/15/24 10/28/25 metformin 1,000 mg tablet 1,000 mg PO BID 03/15/24 10/28/25 doxepin 25 mg capsule 25 mg PO QAM 03/21/24 10/28/25 doxepin 75 mg capsule 75 mg PO QPM 09/19/25 10/28/25 cholecalciferol (vitamin D3) 25 50 mcg PO QAM 10/02/25 10/28/25 mcg (1,000 unit) capsule clopidogrel 75 mg tablet 75 mg PO QAM 10/02/25 10/28/25 tamsulosin 0.4 mg capsule 0.4 mg PO QPM 10/02/25 10/28/25 carbidopa 25 mg-levodopa 250 mg 2 tab PO TID 10/20/25 10/28/25 tablet cyanocobalamin (vitamin B-12) 1,000 mcg PO DAILY 10/20/25 10/28/25 1,000 mcg tablet divalproex 500 mg tablet,delayed 500 mg PO AMHS 10/20/25 10/28/25 release levothyroxine 112 mcg tablet 112 mcg PO QAM 10/20/25 10/28/25 midodrine 2.5 mg tablet 2.5 mg PO AMPM 10/28/25 10/28/25 omeprazole 20 mg tablet,delayed 20 mg PO DAILY 10/28/25 10/28/25 release Results & Data (ED) Vital Signs Vital Signs - 24 hr 10/28/25 14:50 10/28/25 14:50 10/28/25 14:50 Temperature 37.3 C 37.3 C Temperature Source Oral Oral Pulse Rate 89 89 Pulse Rate [Apical] 89 Pulse Rate from SpO2 Sensor Respiratory Rate 20 20 20 Blood Pressure 92/57 L Blood Pressure [Right Arm] 93/57 L Blood Pressure Mean 68 Blood Pressure Mean [Right Arm] 69 Pulse Oximetry 92 95 92 Oxygen Delivery Method Room Air Nasal Cannula Room Air Oxygen Flow Rate 2 Sepsis Recent Fever Within 48 Hours No Sepsis New/Unexplained Change in Mental Status No Sepsis Action Taken by Nursing No Action Required Oxygen Flow Rate - Titration Pulse Oximetry Post Tiitration 10/28/25 14:50 10/28/25 15:04 10/28/25 16:59 Temperature Temperature Source Pulse Rate 82 Pulse Rate [Apical] 83 Pulse Rate from SpO2 Sensor Respiratory Rate 20 Blood Pressure Blood Pressure [Right Arm] 118/79 Blood Pressure Mean Blood Pressure Mean [Right Arm] 92 Pulse Oximetry 92 96 Oxygen Delivery Method Room Air Nasal Cannula Nasal Cannula Oxygen Flow Rate 0 2 Sepsis Recent Fever Within 48 Hours Sepsis New/Unexplained Change in Mental Status Sepsis Action Taken by Nursing Oxygen Flow Rate - Titration 2 Pulse Oximetry Post Tiitration 95 10/28/25 17:00 10/28/25 17:00 10/28/25 17:15 Temperature Temperature Source Pulse Rate 76 75 Pulse Rate [Apical] 83 Pulse Rate from SpO2 Sensor 75 Respiratory Rate 20 18 22 Blood Pressure 118/79 121/69 Blood Pressure [Right Arm] 118/79 Blood Pressure Mean 92 86 Blood Pressure Mean [Right Arm] 92 Pulse Oximetry 96 97 Oxygen Delivery Method Nasal Cannula Nasal Cannula Oxygen Flow Rate 2 2 Sepsis Recent Fever Within 48 Hours Sepsis New/Unexplained Change in Mental Status Sepsis Action Taken by Nursing Oxygen Flow Rate - Titration Pulse Oximetry Post Tiitration 10/28/25 17:30 10/28/25 17:30 10/28/25 17:30 Temperature Temperature Source Pulse Rate 76 Pulse Rate [Apical] Pulse Rate from SpO2 Sensor 76 Respiratory Rate 13 Blood Pressure 115/81 115/81 115/81 Blood Pressure [Right Arm] Blood Pressure Mean 92 98 98 Blood Pressure Mean [Right Arm] Pulse Oximetry 98 Oxygen Delivery Method Nasal Cannula Oxygen Flow Rate 2 Sepsis Recent Fever Within 48 Hours Sepsis New/Unexplained Change in Mental Status Sepsis Action Taken by Nursing Oxygen Flow Rate - Titration Pulse Oximetry Post Tiitration 10/28/25 17:30 10/28/25 17:30 Temperature Temperature Source Pulse Rate Pulse Rate [Apical] Pulse Rate from SpO2 Sensor Respiratory Rate Blood Pressure 115/81 115/81 Blood Pressure [Right Arm] Blood Pressure Mean 98 98 Blood Pressure Mean [Right Arm] Pulse Oximetry Oxygen Delivery Method Oxygen Flow Rate Sepsis Recent Fever Within 48 Hours Sepsis New/Unexplained Change in Mental Status Sepsis Action Taken by Nursing Oxygen Flow Rate - Titration Pulse Oximetry Post Tiitration Laboratory Data 10/28/25 15:45 10/28/25 15:45 Lab Results 10/28/25 Range/Units 15:45 WBC 8.42 (4.8-10.8) K/ul RBC 3.32 L (4.70-6.10) M/uL Hgb 9.6 L (14.0-18.0) g/dL Hct 29.7 L (42.0-52.0) % MCV 89.5 (80.0-100.0) fL MCH 28.9 (25.0-34.0) pg MCHC 32.3 (32.0-36.0) g/dL RDW Std Deviation 47.4 H (36.4-46.3) fL RDW Coeff of Teresa 14.5 (11.5-14.5) % Plt Count 377 (130-400) K/uL MPV 9.4 (9.4-12.4) fL Immature Gran % (Auto) 3.2 % Neut % (Auto) 62.7 % Lymph % (Auto) 16.2 % Elbert % (Auto) 16.5 % Eos % (Auto) 1.0 % Baso % (Auto) 0.4 % Neut # (Auto) 5.29 (1.40-6.50) K/uL Lymph # (Auto) 1.36 (1.20-3.40) K/uL Elbert # (Auto) 1.39 H (0.11-0.59) K/uL Eos # (Auto) 0.08 (0.00-0.50) K/uL Baso # (Auto) 0.03 (0.00-0.20) K/uL Immature Gran # (Auto) 0.27 H (0.01-0.20) K/uL VBG pH 7.35 L (7.36-7.41) VBG pCO2 49 (38-50) mmHg VBG pO2 27 mmHg VBG HCO3 27 mmol/L VBG O2 Saturation < 60.0 % VBG Base Excess 0.8 mEq/L Sodium 138 (136-145) mmol/L Potassium 4.4 (3.5-5.1) mmol/L Chloride 103 (98-107) mmol/L Carbon Dioxide 24 (21-32) mmol/L Anion Gap 11 (3-11) BUN 16 (6-23) mg/dl Creatinine 1.40 (0.6-1.4) mg/dl Est Cr Clr Drug Dosing 49.9 ml/min eGFR 53.40 BUN/Creatinine Ratio 11.4 (10-20) Glucose 103 H (70-99(Fasting)) mg/dl Lactate 2.0 (0.4-2.0) mmol/L Calcium 9.0 (8.6-10.3) mg/dl Magnesium 1.7 (1.7-2.4) mg/dl Total Bilirubin 0.4 (0.2-1.0) mg/dl Direct Bilirubin 0.1 (0-0.2) mg/dl AST 9 L (13-39) U/L ALT < 3 L (7-52) U/L Alkaline Phosphatase 38 (34-104) U/L Troponin I High Sens 4.0 (0-20) pg/ml Total Protein 7.7 (6.0-8.3) gm/dl Albumin 3.5 (3.4-5.0) gm/dl Procalcitonin 0.10 (0-0.5) ng/ml Administered Medications Carbidopa/Levodopa (Carbidopa/Levodopa 25-250 1 Ea Tab) 2 tab PO TID VERONIQUE Stop: 11/27/25 20:59 Last Admin: 10/28/25 20:17 Dose: 2 tab Documented By: KIRAN Divalproex Sodium (Divalproex Delay Release 500 Mg Tab) 500 mg PO AMHS VERONIQUE Stop: 11/27/25 20:59 Last Admin: 10/28/25 20:17 Dose: 500 mg Documented By: KIRAN Doxepin HCl (Doxepin Hcl 75 Mg Capsule) 75 mg PO QPM VERONIQUE Stop: 11/27/25 20:59 Last Admin: 10/28/25 20:18 Dose: 75 mg Documented By: KIRAN Famotidine (Famotidine 40 Mg Tablet) 40 mg PO QPM VERONIQUE Stop: 11/27/25 20:59 Last Admin: 10/28/25 20:53 Dose: 40 mg Documented By: KIRAN Methylprednisolone 40 mg/ (Syringe) 0.64 mls @ 1.5 mls/min IV Q6H VERONIQUE Stop: 11/27/25 17:59 Last Admin: 10/28/25 19:07 Dose: 1.5 mls/min Documented By: KIRAN Insulin Aspart (Insulin Aspart Per Unit Charge) 0 units SC ACHS [facility] Stop: 11/27/25 18:14 Last Admin: 10/28/25 20:52 Dose: Not Given Documented By: Admin: 10/28/25 19:12 Dose: Not Given Documented By: KIRAN Insulin Glargine (Lantus Per Unit Charge) 0 units SC HS [facility]; Protocol Stop: 11/27/25 20:59 Last Admin: 10/28/25 20:19 Dose: Not Given Documented By: KIRAN Midodrine (Midodrine Hcl 2.5 Mg Tab) 2.5 mg PO BID VERONIQUE Stop: 11/27/25 20:59 Last Admin: 10/28/25 20:18 Dose: 2.5 mg Documented By: KIRAN Tamsulosin HCl (Tamsulosin Hcl 0.4 Mg Cap) 0.4 mg PO QPM VERONIQUE Stop: 11/27/25 20:59 Last Admin: 10/28/25 20:51 Dose: 0.4 mg Documented By: KIRAN Discontinued Medications Albuterol (Albut/Ipratrop 3mg/0.5mg Neb 3 Ml Vial) 3 ml NEB NOW STA; Protocol Stop: 10/28/25 14:49 Last Admin: 10/28/25 15:00 Dose: 3 ml Documented By: joyce Albuterol (Albut/Ipratrop 3mg/0.5mg Neb 3 Ml Vial) 3 ml NEB NOW STA; Protocol Stop: 10/28/25 16:24 Last Admin: 10/28/25 17:00 Dose: 3 ml Documented By: NADIR Doxycycline Hyclate (Doxycycline Hyclate 100 Mg Cap) 100 mg PO NOW STA Stop: 10/28/25 16:24 Last Admin: 10/28/25 17:00 Dose: 100 mg Documented By: NADIR Parenteral Electrolytes (Plasma-Lyte A Ph 7.4) 1,000 mls @ 999 mls/hr IV .Q1H1M ONE Stop: 10/28/25 15:48 Last Infusion: 10/28/25 18:09 Dose: Infused Documented By: Admin: 10/28/25 16:22 Dose: 999 mls/hr Documented By: joyce Acetaminophen (Ofirmev) 1,000 mg in 100 mls @ 400 mls/hr IV NOW STA Stop: 10/28/25 15:02 Last Infusion: 10/28/25 18:09 Dose: Infused Documented By: Admin: 10/28/25 16:22 Dose: 400 mls/hr Documented By: joyce Ceftriaxone Sodium (Rocephin) 1,000 mg in 50 mls @ 100 mls/hr IV NOW STA Stop: 10/28/25 16:52 Last Infusion: 10/28/25 18:24 Dose: Infused Documented By: Admin: 10/28/25 17:00 Dose: 100 mls/hr Documented By: MNE Imaging Data Radiologist's Impression: Chest X-Ray 10/28/25 14:48 Chest radiograph, one view History: Chest pain Comparison: None Findings: Single AP view of the chest performed. No focal consolidation or pleural effusion. No pneumothorax. The cardiomediastinal silhouette is within normal limits. Normal pulmonary vascularity. No evidence for lymphadenopathy. No visualized bony or soft tissue abnormality. Impression: Normal chest radiograph Electronically signed by Kirill Bonilla 10-28-2025 4:32 PM Discharge Plan Visit Data Chief Complaint: Weakness Stated Complaint: Weakness ED Provider: Jeramie Leon Discharge Problem: Acute hypoxic respiratory failure, Parkinson disease, Near syncope, PNA (pneumonia), Chronic anemia Patient Disposition: Admitted As Inpatient Condition: Serious Discharge Instructions Interventions: ED Discharge Assessment Last Done: 10/28/25 19:29
[2025-10-28] MEDS: ALBUT/IPRATROP 3MG/0.5MG NEB 3 ML VIAL NEB STA ×2 (15:00→17:00)
[2025-10-28 16:03] LABS: Base Excess VBG 0.8 mEq/L; HCO3 VBG 27 mmol/L; Oxygen Saturation VBG < 60.0 %; PCO2 VBG 49 mmHg (38-50); PO2 VBG 27 mmHg; pH VBG 7.35 (7.36-7.41)
[2025-10-28 16:06] LABS: Hematocrit (blood only) 29.7 % (42.0-52.0); Hemoglobin 9.6 g/dL (14.0-18.0); Immature Granulocytes # (auto) 0.27 K/uL (0.01-0.20); Immature Granulocytes % (auto) 3.2 %; Mean Corpuscular Hemoglobin 28.9 pg (25.0-34.0); Mean Corpuscular Volume 89.5 fL (80.0-100.0); Platelet Count 377 K/uL (130-400); RDW Standard Deviation 47.4 fL (36.4-46.3); Red Blood Count 3.32 M/uL (4.70-6.10); White Blood Count 8.42 K/ul (4.8-10.8)
[2025-10-28] MEDS: ACETAMINOPHEN 1,000 MG/100 ML VIAL IV STA (16:22)
[2025-10-28] MEDS: PLASMA-LYTE A 1,000 ML IV ONE (16:22)
--- NOTE | 2025-10-28 16:33 | XRay Report ---
Chest radiograph, one view History: Chest pain Comparison: None Findings: Single AP view of the chest performed. No focal consolidation or pleural effusion. No pneumothorax. The cardiomediastinal silhouette is within normal limits. Normal pulmonary vascularity. No evidence for lymphadenopathy. No visualized bony or soft tissue abnormality. Impression: Normal chest radiograph Electronically signed by Kirill Bonilla 10-28-2025 4:32 PM
[2025-10-28 16:36] LABS: Anion Gap 11 (3-11); Blood Urea Nitrogen 16 mg/dl (6-23); Calcium 9.0 mg/dl (8.6-10.3); Carbon Dioxide 24 mmol/L (21-32); Chloride 103 mmol/L (98-107); Creatinine Clr Calc Pharmacy 49.9 ml/min; Glucose 103 mg/dl (70-99(Fasting)); Potassium 4.4 mmol/L (3.5-5.1); Sodium 138 mmol/L (136-145)
[2025-10-28 16:37] LABS: Alanine Aminotransferase < 3 U/L (7-52); Albumin Level 3.5 gm/dl (3.4-5.0); Alkaline Phosphatase 38 U/L (34-104); Bilirubin,Total 0.4 mg/dl (0.2-1.0); Magnesium 1.7 mg/dl (1.7-2.4); Total Protein 7.7 gm/dl (6.0-8.3)
[2025-10-28] MEDS: DOXYCYCLINE HYCLATE 100 MG CAP PO STA (17:00)
[2025-10-28] MEDS: cefTRIAXone SODIUM 1,000 MG/50 ML BAG IV STA (17:00)
[2025-10-28] MEDS ORDERED: ACETAMINOPHEN 325 MG TAB PO PRN (17:33)
[2025-10-28] MEDS ORDERED: ONDANSETRON INJ 2 MG/ML 2 ML VIAL IV PRN (17:33)
[2025-10-28] MEDS ORDERED: ALBUT/IPRATROP 3MG/0.5MG NEB 3 ML VIAL NEB PRN (17:33)
[2025-10-28] MEDS ORDERED: PHARMACY GLYCEMIC MGMT CONSULT PRN (17:33)
[2025-10-28] MEDS ORDERED: cefTRIAXone SODIUM 1,000 MG/50 ML BAG IV SCH (17:45)
--- NOTE | 2025-10-28 17:53 | History & Physical Report ---
Date of Service October 28, 2025 Assessment & Plan (1) PNA (pneumonia): Plan: -CXR showing possible RLL infiltrate -recent influenza infection -rocephin/zithromax -duonebs prn -supplemental 02 (2) Acute exacerbation of chronic obstructive pulmonary disease (COPD): Plan: -duonebs prn -solu-medrol 40mg IV Q6hrs (3) Parkinson disease: Plan: -carbidopa-levodopa (4) Diabetes: Plan: -pharm consult for glycemic managment (5) Depression with anxiety: Plan: -fluoxetine (6) Hypothyroidism: Plan: -levothyroxine (7) HLD (hyperlipidemia): Plan: -atorvastatin Plan Heparin SQ for DVT px History of Present Illness Chief Complaint: cough,SOB Primary Care Provider: Lj Randle MD 70-year-old male with a past medical history including COPD, diabetes mellitus, intracranial aneurysms, Parkinson's, tremor, hyperlipidemia, seizure disorder, GERD, BPH and chronic pain syndrome who presents with 1 day history of productive cough and SOB. Pt recently was hospitalized for influenza A and discharged a few days ago. In the ER patient was found to be dyspenic and hypoxic requiring 3LNC. His symptoms improved with neb treatments. His CXR showed a possibly newly developing RLL infiltrate. He was given rocephin and doxycycline in the ER and will be admitted for further treatment of CAP and likely COPD exacerbation. Allergies Allergy/AdvReac Type Severity Reaction Status Date / Time lamotrigine [From Lamictal] Allergy Severe Swelling Verified 10/28/25 16:49 of Lip/Tongue/Throat nickel Allergy Unknown Unknown Verified 10/28/25 16:49 Home Medications Medication Instructions Recorded Confirmed Type aspirin 81 mg tablet,delayed 81 mg PO DAILY 03/15/24 10/28/25 History release atorvastatin 80 mg tablet 80 mg PO QAM 03/15/24 10/28/25 History famotidine 40 mg tablet 40 mg PO QPM 03/15/24 10/28/25 History fluoxetine 20 mg capsule 20 mg PO QAM 03/15/24 10/28/25 History metformin 1,000 mg tablet 1,000 mg PO BID 03/15/24 10/28/25 History doxepin 25 mg capsule 25 mg PO QAM 03/21/24 10/28/25 History doxepin 75 mg capsule 75 mg PO QPM 09/19/25 10/28/25 History cholecalciferol (vitamin D3) 25 50 mcg PO QAM 10/02/25 10/28/25 History mcg (1,000 unit) capsule clopidogrel 75 mg tablet 75 mg PO QAM 10/02/25 10/28/25 History tamsulosin 0.4 mg capsule 0.4 mg PO QPM 10/02/25 10/28/25 History carbidopa 25 mg-levodopa 250 mg 2 tab PO TID 10/20/25 10/28/25 History tablet cyanocobalamin (vitamin B-12) 1,000 mcg PO DAILY 10/20/25 10/28/25 History 1,000 mcg tablet divalproex 500 mg tablet,delayed 500 mg PO AMHS 10/20/25 10/28/25 History release levothyroxine 112 mcg tablet 112 mcg PO QAM 10/20/25 10/28/25 History midodrine 2.5 mg tablet 2.5 mg PO AMPM 10/28/25 10/28/25 History omeprazole 20 mg tablet,delayed 20 mg PO DAILY 10/28/25 10/28/25 History release Past Med/Surg History Problem List (Updated 10/28/25 @ 17:50 by Carroll Box MD) Diabetes PNA (pneumonia) Bronchitis Elevated lactic acid level (Acute) Acute exacerbation of chronic obstructive pulmonary disease (COPD) (Acute) Fall (Acute) Influenza A (Acute) Frequent falls (Acute) Near syncope (Acute) Hypotension (Acute) Parkinson disease (Acute) Heart murmur Tremor Medical History Prostate cancer Hx TIA/stroke w/o resid Multiple falls Epilepsy Depression with anxiety Chronic nonalcoholic liver disease Prediabetes Ambulatory dysfunction Moderate cognitive impairment Near syncope Intracranial aneurysm GERD (gastroesophageal reflux disease) Hypothyroidism HLD (hyperlipidemia) COPD (chronic obstructive pulmonary disease) Parkinson disease Surgical History History of carpal tunnel release of both wrists H/O thumb surgery History of cholecystectomy Family History Mother Stomach cancer Father Cancer Brother Cancer Daughter Ewwpd-Xyubaqhnl-Tpste syndrome Son Coronary heart disease Daughter Thoracic aortic aneurysm Pacemaker Social History (Updated 10/20/25 @ 04:54 by Sara Zapata, ) Smoking Status: Current every day smoker Tobacco Type: Cigarettes packs per day: 1.5; Second Hand Exposure: Yes; Do You Dip or Chew Tobacco: No; Hx Alcohol Use: No Hx Substance Use: Yes Last Used Substance: Days (ago) Last Used Substance Other:: Pt reports daily use; has medical card Preferred Language: Maltese Communication Ability: Effective Electronics Recycler Required: No Beliefs That Will Affect Care: None marital status: Current Living Situation: Spouse current occupational status: retired How many Children do You have: 4 Feels Safe at Home: Yes Assistive Devices: Cane, Glasses and Walker Review of Systems Review of Systems: CONST: Negative for fever, body aches and chills. HENT: Negative for neck pain/stiffness, headache, congestion, sore throat, swelling. EYES: Negative for discharge/pain or vision changes. RESP: + cough and shortness of breath. CV: Negative chest pain, difficulty breathing, palpitations. ABD: Negative pain, nausea, vomiting. : Negative increase frequency, dysuria, blood in urine or stool. MUSC: Negative for muscle aches, edema. SKIN: Negative rash, lesions/sores. NEURO: Negative headache, dizziness, weakness. Physical Exam Physical Exam: GENERAL APPEARANCE NAD, activity normal for age, well developed/ well nourished, no cyanosis, pallor, or diaphoresis. EYES lids/conjunctiva normal. EARS/NOSE/THROAT Mucous membranes moist, nares normal, lips/teeth normal uvula midline without oral pharyngeal erythema, ex udate or swelling TMs normal bilaterally. No lymphangitis/lymphedema. HEAD/NECK normocephalic atraumatic, no facial trauma, neck is supple. RESPIRATORY respiratory effort normal, speaks in full sentences, no tripod position, no accessory muscle use. Lungs clear to auscultation without rhonchi, wheezes, rales CARDIAC Regular rate and rhythm, no edema. ABDOMINAL Soft, ND/NT. No evidence of fluid wave. No pulsatile masses on exam, rebound tenderness, Trevino sign or pain over Mcburney's point. MUSCLES/EXTREMITIES No abnormal range of motion, no swelling. SKIN Warm, pink and dry. No rashes, dermatoses, petechiae or lesions. NEUROLOGICAL Speech is clear and appropriate. Normal level of consciousness. Gait and coordination are normal. 5/5 strength in all extremities. PSYCH Normal mood and affect. Judgement/competence is appropriate Results & Data Results & Data Vital Signs (Past 12 Hours) Vital Signs Temp Pulse Pulse Resp BP BP Pulse Ox 10/28/25 17:30 76 13 115/81 98 10/28/25 17:15 75 22 121/69 97 10/28/25 17:00 76 18 118/79 10/28/25 17:00 83 20 118/79 96 10/28/25 16:59 83 20 118/79 96 10/28/25 15:04 82 10/28/25 14:50 92 10/28/25 14:50 37.3 C 89 20 93/57 L 92 10/28/25 14:50 89 20 95 10/28/25 14:50 37.3 C 89 20 92/57 L 92 O2 Del Method O2 Flow Rate 10/28/25 17:30 Nasal Cannula 2 10/28/25 17:15 Nasal Cannula 2 10/28/25 17:00 10/28/25 17:00 Nasal Cannula 2 10/28/25 16:59 Nasal Cannula 2 10/28/25 15:04 10/28/25 14:50 Room Air, Nasal Cannula 0 10/28/25 14:50 Room Air 10/28/25 14:50 Nasal Cannula 2 10/28/25 14:50 Room Air PG Care Time/CCT Total # of Minutes Spent Total Time Spent with Patient: Total time spent is greater than 50% in coordination of care (as documented) at patient's floor/unit and/or counseling patient: Coding Level of Care Code 42500 INT INP/OBS CARE 255MIN Diagnoses PNA (pneumonia) J18.9 Acute exacerbation of chronic obstructive pulmonary disease (COPD) J44.1 Parkinson disease G20.A1 Diabetes E11.9 Depression with anxiety F41.8 Hypothyroidism E03.9 HLD (hyperlipidemia) E78.5
[2025-10-28] MEDS ORDERED: GLUCAGON FOR INJ 1 MG VIAL SQ PRN (18:30)
[2025-10-28] MEDS ORDERED: GLUCOSE 40% GEL 15 GM TUBE PO PRN (18:30)
[2025-10-28] MEDS ORDERED: DEXTROSE 50% 50 ML SYRINGE IV PRN (18:30)
[2025-10-28] MEDS ORDERED: GLUCOSE 10 TAB/TUBE PO PRN (18:30)
[2025-10-28] MEDS ORDERED: CARBOHYDRATES FOR HYPOGLYCEMIA PO PRN (18:30)
[2025-10-28] MEDS: INSULIN ASPART PER UNIT CHARGE SC SCH (19:12)
--- NOTE | 2025-10-28 19:21 | Pharmacy Report ---
Pharmacy Glycemic Short Note 2 - Date of Service October 28, 2025 - Glycemic Short BSG Results (Last 24 hours): 10/28/25 15:45 Glucose 103 H OUTPATIENT ANTIDIABETIC REGIMEN: * metformin 1 gm bid ASSESSMENT: * 70 year old admitted for possible pneumonia/COPD exacerbation. Pharmacy consulted for glycemic management. Patient starting on high dose steroids. Will plan to start novolog now weight based stress 2-3 dosing. Will consider adding on basal insulin at HS time if BSGs trending upward PLAN FOR INPATIENT GLYCEMIC CONTROL: * Hold outpatient oral diabetes medications * Basal insulin * Lantus 0-10 units hs * Bolus insulin * NovoLog per scale ACHS or Q6hrs while NPO * Goal Range: Low 110 mg/dL - High 140 mg/dL * Correction Factor: 20 mg/dL/unit * Nutritional / Prandial insulin per carb ratio of 1 unit per 7 grams CHO consumed
[2025-10-28 20:02] LABS: Chlamydia pneumoniae PCR Not Detected (NotDetected); Coronavirus 229E PCR Not Detected (NotDetected); Coronavirus CoV-2 (COVID19)PCR Not Detected (NotDetected); Coronavirus HKU1 PCR Not Detected (NotDetected); Coronavirus NL63 PCR Not Detected (NotDetected); Coronavirus OC43PCR Not Detected (NotDetected); Human Metapneumovirus PCR Not Detected (NotDetected); Parainfluenza Virus 1 PCR Not Detected (NotDetected); Parainfluenza Virus 2 PCR Not Detected (NotDetected); Parainfluenza Virus 3 PCR Not Detected (NotDetected); Parainfluenza Virus 4 PCR Not Detected (NotDetected); Respiratory Syncytial VirusPCR Not Detected (NotDetected); Rhinovirus/Enterovirus PCR Not Detected (NotDetected)
[2025-10-28] MEDS: CARBIDOPA/LEVODOPA 25-250 1 EA TAB PO SCH (20:17)
[2025-10-28] MEDS: DIVALPROEX DELAY RELEASE 500 MG TAB PO SCH (20:17)
[2025-10-28] MEDS: DOXEPIN HCL 75 MG CAPSULE PO SCH (20:18)
[2025-10-28] MEDS: MIDODRINE HCL 2.5 MG TAB PO SCH (20:18)
[2025-10-28] MEDS: LANTUS PER UNIT CHARGE SC SCH (20:19)
[2025-10-28] MEDS: TAMSULOSIN HCL 0.4 MG CAP PO SCH (20:51)
[2025-10-28] MEDS: FAMOTIDINE 40 MG TABLET PO SCH (20:53)
[2025-10-29] MEDS: HEPARIN SOD 5,000 UNIT/0.5 ML VIAL SQ SCH (01:36)
[2025-10-29 02:53] LABS: Appearance Urine Clear (Clear); Glucose Urine UA Negative (Negative)
[2025-10-29] MEDS: LEVOTHYROXINE SODIUM 112 MCG TABLET PO SCH (07:55)
[2025-10-29] MEDS: CLOPIDOGREL BISULFATE 75 MG TAB PO SCH (09:22)
[2025-10-29] MEDS: CHOLECALCIFEROL 25 MCG (1000 UNITS) TAB PO SCH (09:22)
[2025-10-29] MEDS: CYANOCOBALAMIN (B-12) 500 MCG TABLET PO SCH (09:22)
[2025-10-29] MEDS: DOXEPIN HCL 25 MG CAPSULE PO SCH (09:22)
[2025-10-29] MEDS: ATORVASTATIN 40 MG TAB PO SCH (09:23)
[2025-10-29] MEDS: AZITHROMYCIN 250 MG TAB PO SCH (09:23)
[2025-10-29] MEDS: ASPIRIN 81 MG ECTAB PO SCH (09:23)
[2025-10-29] MEDS ORDERED: GLUCAGON FOR INJ 1 MG VIAL SQ PRN (10:43)
[2025-10-29] MEDS ORDERED: GLUCOSE 10 TAB/TUBE PO PRN (10:43)
[2025-10-29] MEDS ORDERED: GLUCOSE 40% GEL 15 GM TUBE PO PRN (10:43)
[2025-10-29] MEDS ORDERED: CARBOHYDRATES FOR HYPOGLYCEMIA PO PRN (10:43)
[2025-10-29] MEDS ORDERED: DEXTROSE 50% 50 ML SYRINGE IV PRN (10:43)
[2025-10-29] MEDS: INSULIN ASPART PER UNIT CHARGE SC SCH (13:10)
[2025-10-29] MEDS ORDERED: ALBUT/IPRATROP 3MG/0.5MG NEB 3 ML VIAL NEB SCH (14:00)
--- NOTE | 2025-10-29 16:46 | Hospitalist Progress Note ---
Date of Service October 29, 2025 Assessment & Plan (1) PNA (pneumonia): Plan: Ruled out. Admission chest x-ray is cleared. I suspect he has acute bronchitis producing the exacerbation of COPD. Sputum culture obtained if satisfactory specimen is produced. Continue intravenous Rocephin and oral azithromycin. (2) Acute exacerbation of chronic obstructive pulmonary disease (COPD): Plan: Scheduled DuoNeb therapy and parenteral steroids. Treat underlying bronchitis. (3) Parkinson disease: Plan: Stable. Continue carbidopa-levodopa (4) Diabetes: Plan: ADA diet. Sliding scale insulin coverage. Metformin is currently on hold (5) Hypothyroidism: Plan: Stable. Continue current levothyroxine dose (6) HLD (hyperlipidemia): Plan: Stable. Continue current atorvastatin dosage Plan Hopeful discharge to home within the next day or 2 Admission and Anticipated Discharge Date Admission Date: October 28, 2025 Subjective Alert and oriented. I spoke to the and daughter when they arrived. Admission chest x-ray does not show evidence of pneumonia. I suspect he has underlying bronchitis with exacerbation of COPD. He remains on intravenous Rocephin and oral azithromycin, day 2. Sputum culture has been requested if satisfactory sputum is produced. He also remains on intravenous Solu-Medrol. Admission chest x-ray was unremarkable. Fortunately, he is on room air. Hopefully he can go home soon. Review of Systems 2 Review of Systems: Constitutionalno fever or chills ENTno blurred vision, no double vision, no epistaxis, no sore throat Respiratoryoccasionally productive cough. Wheezing. Dyspnea on exertion. No hemoptysis . No pleuritic pain Cardiacno palpitations, no chest pain, no syncope Roxanna nausea, vomiting, diarrhea, melena, hematochezia GUno urinary retention, no urinary incontinence, no dysuria, no hematuria Musculoskeletalno joint pain, no muscle tenderness Skinno bruising, no rashes, no pruritus Neurono isolated weakness, no paresthesia, no weakness Psychno depression, no anxiety Physical Exam 2 Physical Exam: General-alert and oriented x3, no fever, no chills HEENT-head atraumatic and normocephalic, pupils equal and reactive to light, extraocular muscles intact Neck-no lymphadenopathy or thyromegaly, trachea midline Chest-diminished breath sounds bilaterally. Midline rhonchi. Bilateral end expiratory wheezes. No inspiratory rales Cardiac-regular rate and rhythm, normal S1 and S2 Abdomen-normal bowel sounds, no hepatosplenomegaly Extremities-no cyanosis, clubbing, or edema Neuro-cranial nerves II through XII intact, motor and sensory function within normal limits, strength symmetrical, no focal deficits Psych-normal affect, normal mood Results & Data Results & Data Vital Signs (Past 12 Hours) Vital Signs Temp Pulse Pulse Pulse Resp BP Pulse Ox 10/29/25 15:29 36.8 C 85 16 161/80 H 91 10/29/25 13:01 88 10/29/25 11:32 36.9 C 82 16 154/90 H 92 10/29/25 09:40 75 10/29/25 09:30 10/29/25 09:17 36.6 C 82 18 162/87 H 94 10/29/25 07:43 69 O2 Del Method 10/29/25 15:29 Room Air 10/29/25 13:01 10/29/25 11:32 Room Air 10/29/25 09:40 10/29/25 09:30 Room Air 10/29/25 09:17 Room Air 10/29/25 07:43 Laboratory Results 10/28/25 15:45 10/28/25 15:45 PG Care Time/CCT Total # of Minutes Spent Total Time Spent with Patient: Total time spent is greater than 50% in coordination of care (as documented) at patient's floor/unit and/or counseling patient: Coding Level of Care Code 89539 SUB INP/OBS CARE 3/50MIN Diagnoses PNA (pneumonia) J18.9 Acute exacerbation of chronic obstructive pulmonary disease (COPD) J44.1 Parkinson disease G20.A1 Diabetes E11.9 Hypothyroidism E03.9 HLD (hyperlipidemia) E78.5
[2025-10-29] MEDS: cefTRIAXone SODIUM 2,000 MG/50 ML BAG IV SCH (17:29)
[2025-10-29] MEDS: ALBUT/IPRATROP 3MG/0.5MG NEB 3 ML VIAL NEB SCH (19:43)
[2025-10-30] MEDS: METOPROLOL TARTRATE 1 MG/ML VIAL IV STA (03:51)
[2025-10-30] MEDS ORDERED: methylPREDNISolone 10 mg/mL (For Ped Dose < 7mg) IV SCH (08:30)
--- NOTE | 2025-10-30 12:04 | Hospitalist Progress Note ---
Date of Service October 30, 2025 Assessment & Plan (1) PNA (pneumonia): Plan: Ruled out. Admission chest x-ray is clear. Suspected acute bronchitis producing the exacerbation of COPD. Sputum culture is nondiagnostic so far. He has been treated while hospitalized with intravenous Rocephin and oral azithromycin, day 3. (2) Acute exacerbation of chronic obstructive pulmonary disease (COPD): Plan: Improved with scheduled DuoNeb therapy and parenteral steroids. Will continue to treat underlying bronchitis. (3) Parkinson disease: Plan: Stable. Continue carbidopa-levodopa (4) Diabetes: Plan: ADA diet. Sliding scale insulin coverage. Metformin is currently on hold (5) Hypothyroidism: Plan: Stable. Continue current levothyroxine dose (6) HLD (hyperlipidemia): Plan: Stable. Continue current atorvastatin dosage Plan Hopeful discharge to home tomorrow, October 31 Admission and Anticipated Discharge Date Admission Date: October 28, 2025 Subjective Alert. No distress. He is improving. He probably can go home tomorrow, October 31, on an oral antibiotic and a prednisone tapering dose. I spoke to his by phone today, October 30 Review of Systems 2 Review of Systems: Constitutionalno fever or chills ENTno blurred vision, no double vision, no epistaxis, no sore throat Respiratoryoccasionally productive cough. Wheezing has resolved. Dyspnea on exertion at the time of admission has now resolved. No hemoptysis . No pleuritic pain Cardiacno palpitations, no chest pain, no syncope Roxanna nausea, vomiting, diarrhea, melena, hematochezia GUno urinary retention, no urinary incontinence, no dysuria, no hematuria Musculoskeletalno joint pain, no muscle tenderness Skinno bruising, no rashes, no pruritus Neurono isolated weakness, no paresthesia, no weakness Psychno depression, no anxiety Physical Exam 2 Physical Exam: General-alert and oriented x3, no fever, no chills HEENT-head atraumatic and normocephalic, pupils equal and reactive to light, extraocular muscles intact Neck-no lymphadenopathy or thyromegaly, trachea midline Chest-diminished breath sounds bilaterally. Midline rhonchi has now resolved. Bilateral end expiratory wheezes have now resolved. No inspiratory rales Cardiac-regular rate and rhythm, normal S1 and S2 Abdomen-normal bowel sounds, no hepatosplenomegaly Extremities-no cyanosis, clubbing, or edema Neuro-cranial nerves II through XII intact, motor and sensory function within normal limits, strength symmetrical, no focal deficits Psych-normal affect, normal mood Results & Data Results & Data Vital Signs (Past 12 Hours) Vital Signs Temp Pulse Pulse Resp BP BP Pulse Ox 10/30/25 10:54 36.6 C 88 18 170/79 H 90 10/30/25 10:10 10/30/25 07:53 36.5 C 78 20 176/98 H 93 10/30/25 07:37 71 10/30/25 07:35 86 18 93 10/30/25 02:58 36.4 C L 85 18 187/98 H 92 O2 Del Method 10/30/25 10:54 Room Air 10/30/25 10:10 Room Air 10/30/25 07:53 Room Air 10/30/25 07:37 10/30/25 07:35 Room Air 10/30/25 02:58 Room Air Laboratory Results 10/28/25 15:45 10/28/25 15:45 PG Care Time/CCT Total # of Minutes Spent Total Time Spent with Patient: Total time spent is greater than 50% in coordination of care (as documented) at patient's floor/unit and/or counseling patient: Coding Level of Care Code 69706 SUB INP/OBS CARE 2/35MIN Diagnoses PNA (pneumonia) J18.9 Acute exacerbation of chronic obstructive pulmonary disease (COPD) J44.1 Parkinson disease G20.A1 Diabetes E11.9 Hypothyroidism E03.9 HLD (hyperlipidemia) E78.5
[2025-10-31 06:43] LABS: Hematocrit (blood only) 30.4 % (42.0-52.0); Hemoglobin 10.1 g/dL (14.0-18.0); Mean Corpuscular Hemoglobin 29.2 pg (25.0-34.0); Mean Corpuscular Volume 87.9 fL (80.0-100.0); Platelet Count 503 K/uL (130-400); RDW Standard Deviation 47.1 fL (36.4-46.3); Red Blood Count 3.46 M/uL (4.70-6.10); White Blood Count 13.45 K/ul (4.8-10.8)
[2025-10-31 07:15] LABS: Anion Gap 10.0 (3-11); Blood Urea Nitrogen 25.0 mg/dl (6-23); Calcium 8.8 mg/dl (8.6-10.3); Carbon Dioxide 26.0 mmol/L (21-32); Chloride 105.0 mmol/L (98-107); Creatinine Clr Calc Pharmacy 64.6 ml/min; Glucose 105.0 mg/dl (70-99(Fasting)); Potassium 4.6 mmol/L (3.5-5.1); Sodium 141.0 mmol/L (136-145)
[2025-10-31 07:28] LABS: Acanthocytes 1+; Immature Granulocytes # (auto) 0.95 K/uL (0.01-0.20); Immature Granulocytes % (auto) 7.1 %; Ovalocytes 1+; Polychromasia 1+
[2025-10-31 11:11] VITALS: TEMP 98.2
--- NOTE | 2025-10-31 11:56 | Discharge Summary ---
Discharge Summary Date of Service October 31, 2025 Principal Dx & Hospital Course #1 = Principal Diagnosis (1) PNA (pneumonia): Ruled out. Admission chest x-ray is clear. Suspected acute bronchitis produced the exacerbation of COPD. Sputum culture is nondiagnostic. He has been treated while hospitalized with intravenous Rocephin and oral azithromycin. Home on a prednisone tapering dose and azithromycin for 5 more days (2) Acute exacerbation of chronic obstructive pulmonary disease (COPD): Resolved with scheduled DuoNeb therapy and parenteral steroids. Will continue to treat underlying bronchitis while hospitalized. (3) Parkinson disease: Stable. Continue carbidopa-levodopa (4) Diabetes: ADA diet. Sliding scale insulin coverage. Metformin is currently on hold. R stephenume usual diabetic management at discharge (5) Hypothyroidism: Stable. Continue current levothyroxine dose (6) HLD (hyperlipidemia): Stable. Continue current atorvastatin dosage Plan Home today, October 31 Admission HPI Per Admitting Provider 70-year-old male with a past medical history including COPD, diabetes mellitus, intracranial aneurysms, Parkinson's, tremor, hyperlipidemia, seizure disorder, GERD, BPH and chronic pain syndrome who presents with 1 day history of productive cough and SOB. Pt recently was hospitalized for influenza A and discharged a few days ago. In the ER patient was found to be dyspenic and hypoxic requiring 3LNC. His symptoms improved with neb treatments. His CXR showed a possibly newly developing RLL infiltrate. He was given rocephin and doxycycline in the ER and will be admitted for further treatment of CAP and likely COPD exacerbation. Discharge Exam General-alert and oriented x3, no fever, no chills HEENT-head atraumatic and normocephalic, pupils equal and reactive to light, extraocular muscles intact Neck-no lymphadenopathy or thyromegaly, trachea midline Chest-diminished breath sounds bilaterally. Midline rhonchi have now resolved. Bilateral end expiratory wheezes have now resolved. No inspiratory rales Cardiac-regular rate and rhythm, normal S1 and S2 Abdomen-normal bowel sounds, no hepatosplenomegaly Extremities-no cyanosis, clubbing, or edema Neuro-cranial nerves II through XII intact, motor and sensory function within normal limits, strength symmetrical, no focal deficits Psych-normal affect, normal mood Discharge Plan Discharge Items Patient Disposition: Home - Self-Care Reason For Visit: PNA Discharge Diagnosis: Acute bronchitis, acute exacerbation COPD Condition on Discharge: Good Activity: Resume your previous activity Non-emergency contact: Primary Care Provider Call non-emergency contact if: your symptoms worsen Follow-up/Referrals: Lj Randle MD [Primary Care Provider] - (Please call your primary care provider to schedule a hospital follow-up appointment within 7-10 days) Diet: Carb Consistent or DM2 and Heart Healthy Addtl Attending Provider Instructions: Take prednisone in a tapering dose fashion as directed. Take azithromycin once daily for 5 more days. Prescriptions have been sent to your pharmacy. Pending Studies at Discharge: No Stand-Alone Forms: My [facility] [employer], Smoking Cessation Medications and DC Order Prescriptions: New azithromycin 250 mg Tablet 500 mg PO QAM Qty: 5 0RF prednisone 10 mg tablet See Rx Instructions .ROUTE .COMPLEX Qty: 12 0RF Rx Instructions: 10 mg orally 3 times a day for 2 days, then 10 mg twice a day for 2 days, then 10 mg once a day for 2 days, then stop Continued famotidine 40 mg tablet 40 mg PO QPM fluoxetine 20 mg capsule 20 mg PO QAM metformin 1,000 mg tablet 1,000 mg PO BID aspirin 81 mg tablet,delayed release (DR/EC) 81 mg PO DAILY atorvastatin 80 mg tablet 80 mg PO QAM doxepin 25 mg capsule 25 mg PO QAM clopidogrel 75 mg tablet 75 mg PO QAM tamsulosin 0.4 mg capsule 0.4 mg PO QPM cholecalciferol (vitamin D3) 25 mcg (1,000 unit) capsule 50 mcg PO QAM carbidopa-levodopa 25-250 mg tablet 2 tab PO TID cyanocobalamin (vitamin B-12) 1,000 mcg tablet 1,000 mcg PO DAILY divalproex 500 mg tablet,delayed release (DR/EC) 500 mg PO AMHS levothyroxine 112 mcg tablet 112 mcg PO QAM doxepin 75 mg capsule 75 mg PO QPM omeprazole 20 mg Tablet,Delayed Release (Dr/Ec) 20 mg PO DAILY midodrine 2.5 mg tablet 2.5 mg PO AMPM Discharge Orders: Discharge Order (Routine); Ordered 10/31/25 Ordered By: Ethan Munson Admission Data Admit Date/Time: 10/28/25 17:34 Attending Provider: Ethan Munson Admit Provider: Carroll Box Primary Care Provider: Lj Randle Other Providers: Carroll Box; [facility] Stay Data Consultations 10/28/25 17:36 ED Decision to Admit Stat Pending Results Patient Have Any Pending Studies at Discharge: No Discharge Instructions Given to Patient (Per Discharging Provider) Take prednisone in a tapering dose fashion as directed. Take azithromycin once daily for 5 more days. Prescriptions have been sent to your pharmacy. Total Time Total Time Spent Total Time Spent (In Minutes): 45 minutes. Total time included patient exam, discharge planning, medication reconciliation. Coding Level of Care Code 61093 INP/OBS DISCH >30 MIN Diagnoses PNA (pneumonia) J18.9 Acute exacerbation of chronic obstructive pulmonary disease (COPD) J44.1 Parkinson disease G20.A1 Diabetes E11.9 Hypothyroidism E03.9 HLD (hyperlipidemia) E78.5
[2025-10-31 13:01] VITALS: RESP 16; O2SAT 91
[2025-10-31 13:56] VITALS: BP 170/91; PULSE 82
== END 2025-10-31 14:19 | disposition home or self-care (01) | DRG 192 ==
LOC: ED 14:41 → SUATTDRO 17:34 → EDINP 17:34 → INTOOBSV 17:34 → OBSVTOIN 17:34 → 2N 10-29 08:20